=== PATIENT | male | born 1965 | race Caucasian/White ===

== ENCOUNTER 2017-07-07 19:32 | Emergency (ER) | payer SELFPAY ==
[~2017-07-07] VITALS: Ht 175.3 cm; Wt 77.3 kg
[2017-07-07] MEDS ORDERED: METO50 PO (19:40)
[2017-07-07] MEDS ORDERED: INSREG SQ (19:40)
[2017-07-07] MEDS ORDERED: ATOR40TA28 PO (19:40)
[2017-07-07] MEDS ORDERED: TICA90TA PO (19:40)
[2017-07-07] MEDS ORDERED: INSLAN SQ (19:40)
[2017-07-07 19:42] LABS: GLUCOSE,POINT OF CARE 428 MG/DL (70-110)
[2017-07-07 23:08] LABS: BASOPHILS % (AUTO) 1.1 % (0.0-2.0); EOSINOPHILS % (AUTO) 1.9 % (1.0-6.0); HEMATOCRIT 38.1 % (41-53); HEMOGLOBIN 13.2 g/dL (13.5-17.5); LYMPHOCYTES # (AUTO) 1.5 K/uL (1.0-4.8); LYMPHOCYTES % (AUTO) 16.2 % (22.0-44.0); MEAN CORPUSCULAR HEMOGLOBIN 30.5 pg (26.0-34.0); MEAN CORPUSCULAR HGB CONC 34.7 G/dL (31.0-37.0); MEAN CORPUSCULAR VOLUME 88 fL (80-100); MONOCYTES # (AUTO) 0.8 K/uL (0.1-1.0); MONOCYTES % (AUTO) 8.8 % (2.0-9.0); NEUTROPHILS # (AUTO) 6.6 K/uL (1.8-7.7); PLATELET COUNT (AUTO) 216 K/uL (150-450); RED BLOOD CELL COUNT(AUTO) 4.33 MIL/uL (4.50-5.90); RED CELL DISTRIBUTION WIDTH 13.3 % (11.5-14.5)
[2017-07-07 23:24] LABS: ALANINE AMINOTRANSFERASE 17 U/L (12-78); ALBUMIN 3.2 g/dL (3.4-5.0); ALKALINE PHOSPHATASE 127 U/L (46-116); ANION GAP 9 mmol/L (8-16); ASPARTATE AMINOTRANSFERASE 11 U/L (15-37); BILIRUBIN,TOTAL 0.2 mg/dL (0.1-1.0); CALCIUM, TOTAL 9.1 mg/dL (8.8-10.5); CARBON DIOXIDE 29 mmol/L (22-29); CHLORIDE 99 mmol/L (98-107); CREATININE 0.75 mg/dL (0.60-1.30); GLOMERULAR FILTR. RATE CALC > 60 mL/min (>60); POTASSIUM 4.3 mmol/L (3.5-5.1); SODIUM SERUM 137 mmol/L (136-145); TOTAL PROTEIN, SERUM 7.2 g/dL (6.4-8.2); UREA NITROGEN, BLOOD 14 mg/dL (7-18)
[2017-07-07 23:27] LABS: GLUCOSE,RANDOM 420 mg/dL (70-110)
[2017-07-07] MEDS ORDERED: SODIUM CHLORIDE 0.9% 1,000 ML IV ONE (23:45)
[2017-07-07] MEDS ORDERED: INSULIN REGULAR, HUMAN 100 UNITS/ML IVP ONE (23:45)
[2017-07-08 02:52] LABS: GLUCOSE,POINT OF CARE 263 MG/DL (70-110)
[2017-07-08 03:41] VITALS: BP 134/83
== END 2017-07-08 03:42 | disposition home or self-care (01) ==
LOC: EMS 19:33
DX: R07.89 Other chest pain (principal); E11.65 Type 2 diabetes mellitus with hyperglycemia; I25.2 Old myocardial infarction; E11.9 Type 2 diabetes mellitus without complications; I25.10 Atherosclerotic heart disease of native coronary artery without angina pectoris; F17.210 Nicotine dependence, cigarettes, uncomplicated; Z79.4 Long term (current) use of insulin; Z88.8 Allergy status to other drugs, medicaments and biological substances
CPT/HCPCS: 36415; 71045; 80053; 82962; 84484; 85025; 93005; 96361; 96374; 99285; G0480; J1815; J7030

== ENCOUNTER 2018-03-25 23:55 | Inpatient (IN) | payer MEDICAID ==
[~2018-03-25] VITALS: Ht 175.3 cm; Wt 65.4 kg
[~2018-03-25 23:55] MED LIST: APIX2.5T PO; ATOR40TA28 PO; INSLAN SQ; INSREG SQ
[2018-03-26] MEDS ORDERED: CLOP75 PO (00:11)
[2018-03-26 00:18] LABS: GLUCOSE,POINT OF CARE 412 MG/DL (70-110)
[2018-03-26] MEDS ORDERED: SODIUM CHLORIDE 0.9% 1,000 ML IV ONE (01:00)
[2018-03-26] MEDS ORDERED: ASPIRIN 325 MG TABLET PO ONE (01:00)
[2018-03-26] MEDS ORDERED: NITROGLYCERIN 2% (1 GM=INCH) PACKET TP ONE (01:00)
[2018-03-26] MEDS ORDERED: KETOROLAC TROMETHAMINE 30 MG/ML VIAL IVP ONE (01:15)
[2018-03-26] MEDS ORDERED: PROMETHAZINE HCL 6.25 MG/5 ML SYRUP ORAL.SYG PO ONE (01:15)
[2018-03-26 01:18] LABS: BASOPHILS % (AUTO) 0.3 % (0.0-2.0); EOSINOPHILS % (AUTO) 2.4 % (1.0-6.0); HEMATOCRIT 33.9 % (41-53); HEMOGLOBIN 11.8 g/dL (13.5-17.5); LYMPHOCYTES # (AUTO) 1.2 K/uL (1.0-4.8); MEAN CORPUSCULAR HEMOGLOBIN 28.5 pg (26.0-34.0); MEAN CORPUSCULAR HGB CONC 34.8 G/dL (31.0-37.0); MEAN CORPUSCULAR VOLUME 82 fL (80-100); MONOCYTES # (AUTO) 0.6 K/uL (0.1-1.0); MONOCYTES % (AUTO) 7.3 % (2.0-9.0); NEUTROPHILS # (AUTO) 6.6 K/uL (1.8-7.7); PLATELET COUNT (AUTO) 201 K/uL (150-450); RED BLOOD CELL COUNT(AUTO) 4.14 MIL/uL (4.50-5.90); RED CELL DISTRIBUTION WIDTH 16.7 % (11.5-14.5)
[2018-03-26 01:26] LABS: INR 1.1 (0.9-1.1); PROTHROMBIN TIME 11.8 SEC (9.4-11.6)
[2018-03-26 01:31] LABS: ANION GAP 6 mmol/L (8-16); CALCIUM, TOTAL 9.1 mg/dL (8.8-10.5); CARBON DIOXIDE 30 mmol/L (22-29); CHLORIDE 98 mmol/L (98-107); CREATININE 0.72 mg/dL (0.60-1.30); GLOMERULAR FILTR. RATE CALC > 60 mL/min (>60); GLUCOSE,RANDOM 352 mg/dL (70-110); POTASSIUM 3.4 mmol/L (3.5-5.1); SODIUM SERUM 134 mmol/L (136-145); UREA NITROGEN, BLOOD 14 mg/dL (7-18)
[2018-03-26 01:38] LABS: ALANINE AMINOTRANSFERASE 16 U/L (12-78); ALBUMIN 3.2 g/dL (3.4-5.0); ALKALINE PHOSPHATASE 113 U/L (46-116); ASPARTATE AMINOTRANSFERASE 13 U/L (15-37); BILIRUBIN,TOTAL 0.5 mg/dL (0.1-1.0); CREATINE KINASE, TOTAL ONLY 57 U/L (39-308); TOTAL PROTEIN, SERUM 7.1 g/dL (6.4-8.2)
[2018-03-26 01:39] LABS: B-TYPE NATRIURETIC PEPTIDE 21 pg/mL (0-100)
[2018-03-26] MEDS ORDERED: IOVERSOL 350 MG/ML 100 ML VIAL ONE (02:21)
[2018-03-26] MEDS ORDERED: SODIUM CHLORIDE 0.9% 100 ML ONE (02:21)
[2018-03-26 04:29] LABS: GLUCOSE,POINT OF CARE 348 MG/DL (70-110)
[2018-03-26] MEDS ORDERED: 0.9% SODIUM CHLORIDE 10 ML SYRINGE IVP PRN (05:45)
[2018-03-26] MEDS ORDERED: ACETAMINOPHEN 325 MG TABLET PO PRN ×2 (05:45→06:00)
[2018-03-26 05:54] VITALS: BP 97/70
[2018-03-26] MEDS ORDERED: DEXTROSE 50%-WATER 25 GM/50 ML SYRINGE IVP PRN (06:00)
[2018-03-26] MEDS ORDERED: IBUPROFEN 800 MG TABLET PO PRN (06:00)
[2018-03-26] MEDS: INSULIN LISPRO 100 UNITS/ML SQ PRN ×2 (06:16→12:06)
[2018-03-26 07:29] LABS: GLUCOMETER DEV NAME(LOC) 5N.2; GLUCOSE,POINT OF CARE 358 MG/DL (70-110)
[2018-03-26 07:57] VITALS: BP 109/69
[2018-03-26 11:50] VITALS: BP 133/85
[2018-03-26 15:41] VITALS: BP 133/59
[2018-03-26 18:24] LABS: GLUCOMETER DEV NAME(LOC) 5N.2; GLUCOSE,POINT OF CARE 311 MG/DL (70-110)
== END 2018-03-26 16:45 | disposition home or self-care (01) | DRG 198 ==
LOC: EMS 23:55 → 5N 03-26 03:54
PROVIDERS: ADMIT Hospitalist; ATTEND Hospitalist
DX: R07.89 Other chest pain (principal); I25.10 Atherosclerotic heart disease of native coronary artery without angina pectoris; E11.9 Type 2 diabetes mellitus without complications; I10 Essential (primary) hypertension; Z83.3 Family history of diabetes mellitus; Z95.5 Presence of coronary angioplasty implant and graft; Z88.8 Allergy status to other drugs, medicaments and biological substances; Z79.899 Other long term (current) drug therapy; I25.2 Old myocardial infarction
CPT/HCPCS: 71275; 87081; 93005; 96360; G0378; J1885; J7030; J7050

== ENCOUNTER 2018-05-20 16:56 | Inpatient (IN) | payer MEDICAID ==
[~2018-05-20] VITALS: Ht 172.7 cm; Wt 68.5 kg
[~2018-05-20 16:56] MED LIST changes: -APIX2.5T PO; +CLOP75TA17 PO
[2018-05-20 17:09] LABS: GLUCOSE,POINT OF CARE 236 MG/DL (70-110)
[2018-05-20 17:40] LABS: BASOPHILS % (AUTO) 0.6 % (0.0-2.0); EOSINOPHILS % (AUTO) 2.6 % (1.0-6.0); HEMATOCRIT 39.1 % (41-53); HEMOGLOBIN 13.1 g/dL (13.5-17.5); LYMPHOCYTES # (AUTO) 1.3 K/uL (1.0-4.8); LYMPHOCYTES % (AUTO) 14.7 % (22.0-44.0); MEAN CORPUSCULAR HEMOGLOBIN 27.9 pg (26.0-34.0); MEAN CORPUSCULAR HGB CONC 33.6 G/dL (31.0-37.0); MEAN CORPUSCULAR VOLUME 83 fL (80-100); MONOCYTES # (AUTO) 0.7 K/uL (0.1-1.0); MONOCYTES % (AUTO) 7.7 % (2.0-9.0); NEUTROPHILS # (AUTO) 6.3 K/uL (1.8-7.7); NEUTROPHILS % (AUTO) 74.4 % (40.0-70.0); PLATELET COUNT (AUTO) 236 K/uL (150-450); RED BLOOD CELL COUNT(AUTO) 4.71 MIL/uL (4.50-5.90); RED CELL DISTRIBUTION WIDTH 16.5 % (11.5-14.5)
[2018-05-20 18:06] LABS: ANION GAP 9 mmol/L (8-16); CALCIUM, TOTAL 9.1 mg/dL (8.8-10.5); CARBON DIOXIDE 25 mmol/L (22-29); CHLORIDE 100 mmol/L (98-107); CREATININE 0.57 mg/dL (0.60-1.30); GLOMERULAR FILTR. RATE CALC > 60 mL/min (>60); GLUCOSE,RANDOM 277 mg/dL (70-110); POTASSIUM 3.8 mmol/L (3.5-5.1); SODIUM SERUM 134 mmol/L (136-145); UREA NITROGEN, BLOOD 8 mg/dL (7-18)
[2018-05-20 18:12] LABS: ALANINE AMINOTRANSFERASE 15 U/L (12-78); ALBUMIN 3.1 g/dL (3.4-5.0); ALKALINE PHOSPHATASE 121 U/L (46-116); ASPARTATE AMINOTRANSFERASE 15 U/L (15-37); BILIRUBIN,TOTAL 0.4 mg/dL (0.1-1.0); TOTAL PROTEIN, SERUM 6.9 g/dL (6.4-8.2)
[2018-05-20] MEDS ORDERED: ASPIRIN 81 MG CHEWABLE TABLET PO ONE (19:45)
[2018-05-20] MEDS: NITROGLYCERIN 2% (1 GM=INCH) PACKET TP ONE ×2 (19:48→19:53)
[2018-05-20] MEDS: NITROGLYCERIN 0.4 MG SUBLINGUAL TABLET #25 SL ONE ×2 (19:48→19:52)
[2018-05-20] MEDS ORDERED: KETOROLAC TROMETHAMINE 30 MG/ML VIAL IVP ONE (20:00)
[2018-05-20] MEDS ORDERED: ACETAMINOPHEN 325 MG TABLET PO PRN (22:00)
[2018-05-20] MEDS ORDERED: MAGNESIUM HYDROXIDE SUSPENSION 30 ML UDCUP PO PRN (22:00)
[2018-05-20] MEDS ORDERED: BISACODYL 10 MG RECTAL RECTAL SUPPOSITORY PR PRN (22:00)
[2018-05-20] MEDS ORDERED: HYDROCODONE/ACETAMINOPHEN 5-325 MG TABLET PO PRN (22:00)
[2018-05-20] MEDS ORDERED: MORPHINE SULFATE 2 MG/ML SYRINGE IVP PRN (22:00)
[2018-05-20] MEDS ORDERED: DEXTROSE 50%-WATER 25 GM/50 ML SYRINGE IVP PRN (22:00)
[2018-05-20] MEDS ORDERED: ZOLPIDEM TARTRATE 5 MG TABLET PO PRN (22:00)
[2018-05-21 04:17] VITALS: BP 107/60
[2018-05-21 07:34] LABS: BASOPHILS % (AUTO) 0.5 % (0.0-2.0); EOSINOPHILS % (AUTO) 2.6 % (1.0-6.0); HEMOGLOBIN 13.9 g/dL (13.5-17.5); LYMPHOCYTES # (AUTO) 0.9 K/uL (1.0-4.8); LYMPHOCYTES % (AUTO) 16.2 % (22.0-44.0); MEAN CORPUSCULAR HEMOGLOBIN 28.3 pg (26.0-34.0); MEAN CORPUSCULAR HGB CONC 34.7 G/dL (31.0-37.0); MEAN CORPUSCULAR VOLUME 82 fL (80-100); MONOCYTES # (AUTO) 0.5 K/uL (0.1-1.0); MONOCYTES % (AUTO) 8.8 % (2.0-9.0); NEUTROPHILS # (AUTO) 4.1 K/uL (1.8-7.7); NEUTROPHILS % (AUTO) 71.9 % (40.0-70.0); PLATELET COUNT (AUTO) 227 K/uL (150-450); RED CELL DISTRIBUTION WIDTH 16.5 % (11.5-14.5)
[2018-05-21 07:36] LABS: ANION GAP 4 mmol/L (8-16); CALCIUM, TOTAL 9.3 mg/dL (8.8-10.5); CARBON DIOXIDE 31 mmol/L (22-29); CHLORIDE 99 mmol/L (98-107); CHOL/HDL RATIO 2.4 (4.2-7.3); CHOLESTEROL 118 mg/dL (131-200); CREATININE 0.79 mg/dL (0.60-1.30); GLOMERULAR FILTR. RATE CALC > 60 mL/min (>60); GLUCOSE,RANDOM 330 mg/dL (70-110); HDL CHOLESTEROL 50 mg/dL (40-60); LDL CHOL (CALC.) 32 mg/dL (0-130); POTASSIUM 4.3 mmol/L (3.5-5.1); SODIUM SERUM 134 mmol/L (136-145); TRIGLYCERIDES 179 mg/dL (15-150); UREA NITROGEN, BLOOD 9 mg/dL (7-18)
[2018-05-21 08:21] VITALS: BP 121/80
[2018-05-21 08:39] LABS: GLUCOMETER DEV NAME(LOC) 5S.1; GLUCOSE,POINT OF CARE 313 MG/DL (70-110)
[2018-05-21] MEDS: ATORVASTATIN CALCIUM 40 MG TABLET PO SCH (08:58)
[2018-05-21] MEDS: DOCUSATE SODIUM 100 MG CAPSULE PO SCH ×2 (08:58→21:00)
[2018-05-21] MEDS: CLOPIDOGREL BISULFATE 75 MG TABLET PO SCH (08:58)
[2018-05-21] MEDS: PANTOPRAZOLE SODIUM 40 MG DR TABLET PO SCH (08:58)
[2018-05-21] MEDS: INSULIN LISPRO 100 UNITS/ML SQ PRN (11:28)
[2018-05-21] MEDS: METOPROLOL SUCCINATE 25 MG ER TABLET PO SCH (14:11)
[2018-05-21 14:44] LABS: GLUCOMETER DEV NAME(LOC) 5S.1; GLUCOSE,POINT OF CARE 293 MG/DL (70-110)
[2018-05-21 16:14] LABS: AMPHET/METH SCREEN,URINE NEGATIVE (NEGATIVE); BARBITURATE SCREEN, URINE NEGATIVE (NEGATIVE); BENZODIAZEPINES SCREEN,URINE NEGATIVE (NEGATIVE); CANNABINOID SCREEN,URINE NEGATIVE (NEGATIVE); COCAINE SCREEN,URINE NEGATIVE (NEGATIVE); METHADONE SCREEN, URINE NEGATIVE (NEGATIVE); OPIATE SCREEN,URINE NEGATIVE (NEGATIVE); PHENCYCLIDINE SCREEN,URINE NEGATIVE (NEGATIVE)
[2018-05-21] MEDS ORDERED: INSULIN GLARGINE,HUM.REC.ANLOG 100 UNITS/ML SQ SCH (21:00)
[2018-05-21 21:37] VITALS: BP 118/54
[2018-05-21 23:06] VITALS: BP 111/67
[2018-05-22 04:45] VITALS: BP 124/84
[2018-05-22] MEDS: INSULIN LISPRO 100 UNITS/ML SQ PRN ×2 (06:07→11:38)
[2018-05-22 07:24] LABS: GLUCOMETER DEV NAME(LOC) 5N.1; GLUCOSE,POINT OF CARE 376 MG/DL (70-110)
[2018-05-22 07:50] VITALS: BP 98/70
[2018-05-22] MEDS: PANTOPRAZOLE SODIUM 40 MG DR TABLET PO SCH (08:32)
[2018-05-22] MEDS: METOPROLOL SUCCINATE 25 MG ER TABLET PO SCH (08:32)
[2018-05-22] MEDS: DOCUSATE SODIUM 100 MG CAPSULE PO SCH (08:32)
[2018-05-22] MEDS: ATORVASTATIN CALCIUM 40 MG TABLET PO SCH (08:32)
[2018-05-22] MEDS: CLOPIDOGREL BISULFATE 75 MG TABLET PO SCH (08:32)
[2018-05-22 11:38] VITALS: BP 96/56
[2018-05-22 12:11] LABS: BASOPHILS % (AUTO) 0.7 % (0.0-2.0); EOSINOPHILS % (AUTO) 2.1 % (1.0-6.0); HEMATOCRIT 41.2 % (41-53); LYMPHOCYTES # (AUTO) 1.3 K/uL (1.0-4.8); LYMPHOCYTES % (AUTO) 18.9 % (22.0-44.0); MEAN CORPUSCULAR VOLUME 83 fL (80-100); MONOCYTES # (AUTO) 0.5 K/uL (0.1-1.0); MONOCYTES % (AUTO) 7.5 % (2.0-9.0); NEUTROPHILS # (AUTO) 4.7 K/uL (1.8-7.7); NEUTROPHILS % (AUTO) 70.8 % (40.0-70.0); PLATELET COUNT (AUTO) 232 K/uL (150-450); RED BLOOD CELL COUNT(AUTO) 4.99 MIL/uL (4.50-5.90); RED CELL DISTRIBUTION WIDTH 16.3 % (11.5-14.5)
[2018-05-22 12:42] LABS: ANION GAP 7 mmol/L (8-16); CARBON DIOXIDE 30 mmol/L (22-29); CHLORIDE 96 mmol/L (98-107); CREATININE 0.66 mg/dL (0.60-1.30); GLOMERULAR FILTR. RATE CALC > 60 mL/min (>60); GLUCOSE,RANDOM 307 mg/dL (70-110); POTASSIUM 4.3 mmol/L (3.5-5.1); SODIUM SERUM 133 mmol/L (136-145); UREA NITROGEN, BLOOD 16 mg/dL (7-18)
[2018-05-22] MEDS ORDERED: METO-408 PO (13:01)
[2018-05-23 00:13] LABS: GLUCOMETER DEV NAME(LOC) 5S.1; GLUCOSE,POINT OF CARE 345 MG/DL (70-110)
== END 2018-05-22 13:40 | disposition home or self-care (01) | DRG 198 ==
LOC: EMS 16:57 → 5S 20:27
PROVIDERS: ADMIT Internal Medicine; ATTEND Internal Medicine
DX: I25.110 Atherosclerotic heart disease of native coronary artery with unstable angina pectoris (principal); F11.20 Opioid dependence, uncomplicated; E78.5 Hyperlipidemia, unspecified; I10 Essential (primary) hypertension; G89.4 Chronic pain syndrome; I25.2 Old myocardial infarction; R55 Syncope and collapse; E11.9 Type 2 diabetes mellitus without complications; Z88.8 Allergy status to other drugs, medicaments and biological substances; Z95.5 Presence of coronary angioplasty implant and graft; Z79.899 Other long term (current) drug therapy
CPT/HCPCS: 36556; 70450; 80307; 87081; 93005; 93306; G0378; J1815

== ENCOUNTER 2018-06-14 13:26 | Emergency (ER) | payer MEDICAID ==
[~2018-06-14] VITALS: Ht 175.3 cm; Wt 68.7 kg
[~2018-06-14 13:26] MED LIST changes: -CLOP75TA17 PO; +CLOP75TA3 PO; +METO-408 PO
[2018-06-14 13:53] LABS: GLUCOSE,POINT OF CARE 550 MG/DL (70-110)
[2018-06-14 15:37] LABS: BASOPHILS % (AUTO) 0.9 % (0.0-2.0); EOSINOPHILS % (AUTO) 3.2 % (1.0-6.0); HEMATOCRIT 37.3 % (41-53); HEMOGLOBIN 12.5 g/dL (13.5-17.5); LYMPHOCYTES # (AUTO) 0.9 K/uL (1.0-4.8); LYMPHOCYTES % (AUTO) 15.7 % (22.0-44.0); MEAN CORPUSCULAR HGB CONC 33.5 G/dL (31.0-37.0); MEAN CORPUSCULAR VOLUME 84 fL (80-100); MONOCYTES # (AUTO) 0.5 K/uL (0.1-1.0); MONOCYTES % (AUTO) 8.2 % (2.0-9.0); NEUTROPHILS # (AUTO) 4.3 K/uL (1.8-7.7); PLATELET COUNT (AUTO) 196 K/uL (150-450); RED BLOOD CELL COUNT(AUTO) 4.45 MIL/uL (4.50-5.90); RED CELL DISTRIBUTION WIDTH 15.4 % (11.5-14.5)
[2018-06-14 15:55] LABS: INR 1.1 (0.9-1.1); PROTHROMBIN TIME 11.2 SEC (9.4-11.6)
[2018-06-14 15:57] LABS: ALANINE AMINOTRANSFERASE 14 U/L (12-78); ALBUMIN 3.3 g/dL (3.4-5.0); ALKALINE PHOSPHATASE 125 U/L (46-116); ANION GAP 10 mmol/L (8-16); ASPARTATE AMINOTRANSFERASE 8 U/L (15-37); BILIRUBIN,TOTAL 0.3 mg/dL (0.1-1.0); CALCIUM, TOTAL 9.2 mg/dL (8.8-10.5); CARBON DIOXIDE 27 mmol/L (22-29); CHLORIDE 95 mmol/L (98-107); CREATININE 0.92 mg/dL (0.60-1.30); GLOMERULAR FILTR. RATE CALC > 60 mL/min (>60); LIPASE 155 U/L (73-393); POTASSIUM 4.2 mmol/L (3.5-5.1); SODIUM SERUM 132 mmol/L (136-145); TOTAL PROTEIN, SERUM 7.3 g/dL (6.4-8.2); UREA NITROGEN, BLOOD 13 mg/dL (7-18)
[2018-06-14 16:00] LABS: GLUCOSE,RANDOM 577 mg/dL (70-110)
[2018-06-14] MEDS ORDERED: SODIUM CHLORIDE 0.9% 1,000 ML IV ONE ×2 (16:15→21:15)
[2018-06-14] MEDS ORDERED: INSULIN REGULAR, HUMAN 100 UNITS/ML IVP ONE ×2 (16:15→19:45)
[2018-06-14] MEDS ORDERED: DiphenhydrAMINE HCL 50 MG/ML VIAL IVP ONE (17:00)
[2018-06-14] MEDS ORDERED: MORPHINE SULFATE 4 MG/ML SYRINGE IVP ONE (17:00)
[2018-06-14 17:29] LABS: GLUCOSE,POINT OF CARE 307 MG/DL (70-110)
[2018-06-14 17:36] LABS: APPEARANCE,URINE CLEAR (CLEAR); BILIRUBIN,URINE NEGATIVE (NEGATIVE); GLUCOSE, URINE (UA) >=1000 mg/dL (NEGATIVE); KETONES,URINE NEGATIVE (NEGATIVE); LEUKOCYTE ESTERASE ,URINE NEGATIVE (NEGATIVE); NITRATE,URINE NEGATIVE (NEGATIVE); OCCULT BLOOD,URINE NEGATIVE (NEGATIVE); PH,URINE 5.5 (5.0-8.0); PROTEIN,URINE NEGATIVE (NEGATIVE); UROBILINOGEN,URINE 0.2 mg/dL (<=1.0)
[2018-06-14 17:41] LABS: AMPHET/METH SCREEN,URINE NEGATIVE (NEGATIVE); BARBITURATE SCREEN, URINE NEGATIVE (NEGATIVE); BENZODIAZEPINES SCREEN,URINE NEGATIVE (NEGATIVE); CANNABINOID SCREEN,URINE NEGATIVE (NEGATIVE); COCAINE SCREEN,URINE NEGATIVE (NEGATIVE); METHADONE SCREEN, URINE NEGATIVE (NEGATIVE); OPIATE SCREEN,URINE NEGATIVE (NEGATIVE); PHENCYCLIDINE SCREEN,URINE NEGATIVE (NEGATIVE)
[2018-06-14 17:51] LABS: BACTERIA,URINE None Seen /HPF (None Seen); RBC,URINE 0-2 /HPF (0-2); SQUAMOUS EPITHELIAL CELL,UR Rare /LPF (None Seen); WBC,URINE 0-2 /HPF (0-5)
[2018-06-14 19:39] LABS: GLUCOSE,POINT OF CARE 381 MG/DL (70-110)
[2018-06-14] MEDS ORDERED: KETOROLAC TROMETHAMINE 30 MG/ML VIAL IVP ONE (19:45)
[2018-06-14] MEDS ORDERED: SODIUM CHLORIDE 0.9% 500 ML IV ONE (19:45)
[2018-06-14 21:08] LABS: GLUCOSE,POINT OF CARE 245 MG/DL (70-110)
[2018-06-14 22:04] VITALS: BP 111/67
== END 2018-06-14 22:19 | disposition home or self-care (01) ==
LOC: EMS 13:28
DX: R10.30 Lower abdominal pain, unspecified (principal); R11.2 Nausea with vomiting, unspecified; E11.65 Type 2 diabetes mellitus with hyperglycemia; G89.29 Other chronic pain; E11.9 Type 2 diabetes mellitus without complications; I11.9 Hypertensive heart disease without heart failure; I25.10 Atherosclerotic heart disease of native coronary artery without angina pectoris; I25.2 Old myocardial infarction; F17.210 Nicotine dependence, cigarettes, uncomplicated; Z79.899 Other long term (current) drug therapy; Z79.4 Long term (current) use of insulin; Z88.5 Allergy status to narcotic agent; Z88.6 Allergy status to analgesic agent; Z88.8 Allergy status to other drugs, medicaments and biological substances; Z95.1 Presence of aortocoronary bypass graft
CPT/HCPCS: 36415; 74176; 80053; 80307; 81001; 82009; 82962; 83690; 83880; 84484; 85025; 85610; 85730; 93005; 96361; 96374; 96375; 96376; 99285; J1200; J1815; J1885; J2270; J7030; J7040

== ENCOUNTER 2018-06-30 21:55 | Inpatient (IN) | payer MEDICAID ==
[~2018-06-30] VITALS: Ht 175.3 cm; Wt 70.2 kg
[2018-06-30 22:09] LABS: GLUCOSE,POINT OF CARE 562 MG/DL (70-110)
[2018-06-30 23:06] LABS: BASOPHILS % (AUTO) 0.5 % (0.0-2.0); EOSINOPHILS % (AUTO) 1.7 % (1.0-6.0); HEMATOCRIT 43.2 % (41-53); HEMOGLOBIN 14.6 g/dL (13.5-17.5); LYMPHOCYTES # (AUTO) 1.3 K/uL (1.0-4.8); LYMPHOCYTES % (AUTO) 15.6 % (22.0-44.0); MEAN CORPUSCULAR HEMOGLOBIN 28.3 pg (26.0-34.0); MEAN CORPUSCULAR HGB CONC 33.8 G/dL (31.0-37.0); MEAN CORPUSCULAR VOLUME 84 fL (80-100); MONOCYTES # (AUTO) 0.6 K/uL (0.1-1.0); NEUTROPHILS # (AUTO) 6.2 K/uL (1.8-7.7); NEUTROPHILS % (AUTO) 75.2 % (40.0-70.0); PLATELET COUNT (AUTO) 253 K/uL (150-450); RED BLOOD CELL COUNT(AUTO) 5.16 MIL/uL (4.50-5.90); RED CELL DISTRIBUTION WIDTH 15.8 % (11.5-14.5)
[2018-06-30 23:17] LABS: INR 1.1 (0.9-1.1); PROTHROMBIN TIME 11.3 SEC (9.4-11.6)
[2018-06-30 23:20] LABS: ALANINE AMINOTRANSFERASE 19 U/L (12-78); ALKALINE PHOSPHATASE 142 U/L (46-116); ANION GAP 12 mmol/L (8-16); ASPARTATE AMINOTRANSFERASE 19 U/L (15-37); BILIRUBIN,TOTAL 0.4 mg/dL (0.1-1.0); CALCIUM, TOTAL 9.3 mg/dL (8.8-10.5); CARBON DIOXIDE 26 mmol/L (22-29); CHLORIDE 97 mmol/L (98-107); CREATINE KINASE, TOTAL ONLY 69 U/L (39-308); CREATININE 0.91 mg/dL (0.60-1.30); GLOMERULAR FILTR. RATE CALC > 60 mL/min (>60); POTASSIUM 4.6 mmol/L (3.5-5.1); SODIUM SERUM 135 mmol/L (136-145); TOTAL PROTEIN, SERUM 8.4 g/dL (6.4-8.2); UREA NITROGEN, BLOOD 18 mg/dL (7-18)
[2018-06-30 23:25] LABS: GLUCOSE,RANDOM 464 mg/dL (70-110)
[2018-06-30 23:31] LABS: B-TYPE NATRIURETIC PEPTIDE 74 pg/mL (0-100)
[2018-07-01] MEDS ORDERED: ALBUTEROL SULFATE 5 MG/ML 20 ML NEB SOLN [BULK] NEB ONE (00:30)
[2018-07-01] MEDS ORDERED: INSULIN REGULAR, HUMAN 100 UNITS/ML IVP ONE (00:30)
[2018-07-01] MEDS ORDERED: IPRATROPIUM BROMIDE 0.5 MG/2.5 ML NEB SOLUTION NEB ONE (00:30)
[2018-07-01] MEDS ORDERED: ASPIRIN 325 MG TABLET PO ONE (00:30)
[2018-07-01] MEDS ORDERED: 0.9% SODIUM CHLORIDE 10 ML SYRINGE IVP PRN (01:15)
[2018-07-01] MEDS ORDERED: ACETAMINOPHEN 325 MG TABLET PO PRN ×2 (01:15→20:30)
[2018-07-01] MEDS ORDERED: MORPHINE SULFATE 4 MG/ML SYRINGE IVP ONE (01:15)
[2018-07-01] MEDS: NITROGLYCERIN 2% (1 GM=INCH) PACKET TP ONE ×2 (01:21→01:28)
[2018-07-01] MEDS ORDERED: DiphenhydrAMINE HCL 50 MG/ML VIAL IVP ONE (01:45)
[2018-07-01 02:08] LABS: GLUCOSE,POINT OF CARE 426 MG/DL (70-110)
[2018-07-01 04:17] VITALS: BP 112/56
[2018-07-01] MEDS: MORPHINE SULFATE 2 MG/ML SYRINGE IVP PRN ×4 (05:22→22:08)
[2018-07-01 06:59] LABS: GLUCOMETER DEV NAME(LOC) 5S.1; GLUCOSE,POINT OF CARE 463 MG/DL (70-110)
[2018-07-01] MEDS ORDERED: DEXTROSE 50%-WATER 25 GM/50 ML SYRINGE IVP PRN (07:00)
[2018-07-01] MEDS ORDERED: INSULIN LISPRO 100 UNITS/ML SQ ONE (07:45)
[2018-07-01 08:08] VITALS: BP 113/65
[2018-07-01 11:47] VITALS: BP 112/62
[2018-07-01] MEDS: INSULIN LISPRO 100 UNITS/ML SQ PRN ×3 (11:47→21:55)
[2018-07-01] MEDS: ATORVASTATIN CALCIUM 40 MG TABLET PO SCH (12:18)
[2018-07-01 13:45] LABS: GLUCOMETER DEV NAME(LOC) 5S.1; GLUCOSE,POINT OF CARE 262 MG/DL (70-110)
[2018-07-01 14:39] LABS: APPEARANCE,URINE CLEAR (CLEAR); BILIRUBIN,URINE NEGATIVE (NEGATIVE); GLUCOSE, URINE (UA) >=1000 mg/dL (NEGATIVE); KETONES,URINE NEGATIVE (NEGATIVE); LEUKOCYTE ESTERASE ,URINE NEGATIVE (NEGATIVE); NITRATE,URINE NEGATIVE (NEGATIVE); OCCULT BLOOD,URINE NEGATIVE (NEGATIVE); PROTEIN,URINE NEGATIVE (NEGATIVE); UROBILINOGEN,URINE 0.2 mg/dL (<=1.0)
[2018-07-01 14:49] LABS: BACTERIA,URINE Rare /HPF (None Seen); RBC,URINE None Seen /HPF (0-2); SQUAMOUS EPITHELIAL CELL,UR Rare /LPF (None Seen); WBC,URINE 0-2 /HPF (0-5)
[2018-07-01 15:53] VITALS: BP 110/72
[2018-07-01 19:52] VITALS: BP 99/55
[2018-07-01] MEDS ORDERED: ZOLPIDEM TARTRATE 10 MG TABLET PO PRN (20:30)
[2018-07-01] MEDS ORDERED: MAGNESIUM HYDROXIDE SUSPENSION 30 ML UDCUP PO PRN (20:30)
[2018-07-01] MEDS ORDERED: IPRATROPIUM BROMIDE 0.5 MG/2.5 ML NEB SOLUTION NEB PRN (20:30)
[2018-07-01] MEDS ORDERED: HYDROCODONE/ACETAMINOPHEN 5-325 MG TABLET PO PRN (20:30)
[2018-07-01] MEDS: DOCUSATE SODIUM 100 MG CAPSULE PO SCH (21:00)
[2018-07-01] MEDS: INSULIN GLARGINE,HUM.REC.ANLOG 100 UNITS/ML SQ SCH (21:54)
[2018-07-01 22:05] VITALS: BP 119/70
[2018-07-01] MEDS: NITROGLYCERIN 2% (1 GM=INCH) PACKET TP SCH (23:13)
[2018-07-02 02:14] LABS: GLUCOMETER DEV NAME(LOC) 5S.2; GLUCOSE,POINT OF CARE 332 MG/DL (70-110)
[2018-07-02 04:58] VITALS: BP 109/68
[2018-07-02] MEDS: NITROGLYCERIN 2% (1 GM=INCH) PACKET TP SCH ×4 (05:15→23:05)
[2018-07-02 06:02] LABS: BASOPHILS % (AUTO) 0.3 % (0.0-2.0); EOSINOPHILS % (AUTO) 2.5 % (1.0-6.0); HEMATOCRIT 37.6 % (41-53); HEMOGLOBIN 12.7 g/dL (13.5-17.5); LYMPHOCYTES # (AUTO) 1.4 K/uL (1.0-4.8); LYMPHOCYTES % (AUTO) 20.8 % (22.0-44.0); MEAN CORPUSCULAR HGB CONC 33.7 G/dL (31.0-37.0); MEAN CORPUSCULAR VOLUME 83 fL (80-100); MONOCYTES # (AUTO) 0.7 K/uL (0.1-1.0); NEUTROPHILS # (AUTO) 4.6 K/uL (1.8-7.7); NEUTROPHILS % (AUTO) 66.4 % (40.0-70.0); PLATELET COUNT (AUTO) 208 K/uL (150-450); RED BLOOD CELL COUNT(AUTO) 4.54 MIL/uL (4.50-5.90); RED CELL DISTRIBUTION WIDTH 15.5 % (11.5-14.5)
[2018-07-02 06:17] LABS: ALANINE AMINOTRANSFERASE 13 U/L (12-78); ALKALINE PHOSPHATASE 104 U/L (46-116); ANION GAP 9 mmol/L (8-16); ASPARTATE AMINOTRANSFERASE 9 U/L (15-37); BILIRUBIN,TOTAL 0.4 mg/dL (0.1-1.0); CARBON DIOXIDE 27 mmol/L (22-29); CHLORIDE 100 mmol/L (98-107); CHOL/HDL RATIO 2.1 (4.2-7.3); CHOLESTEROL 89 mg/dL (131-200); CREATININE 0.69 mg/dL (0.60-1.30); GLOMERULAR FILTR. RATE CALC > 60 mL/min (>60); GLUCOSE,RANDOM 197 mg/dL (70-110); HDL CHOLESTEROL 43 mg/dL (40-60); LDL CHOL (CALC.) 37 mg/dL (0-130); POTASSIUM 4.2 mmol/L (3.5-5.1); SODIUM SERUM 136 mmol/L (136-145); TOTAL PROTEIN, SERUM 6.6 g/dL (6.4-8.2); TRIGLYCERIDES 44 mg/dL (15-150); UREA NITROGEN, BLOOD 15 mg/dL (7-18)
[2018-07-02] MEDS: INSULIN LISPRO 100 UNITS/ML SQ PRN ×5 (06:26→21:28)
[2018-07-02] MEDS: MORPHINE SULFATE 2 MG/ML SYRINGE IVP PRN ×4 (06:27→22:59)
[2018-07-02 08:32] VITALS: BP 92/52
[2018-07-02] MEDS: METOPROLOL SUCCINATE 25 MG ER TABLET PO SCH (09:00)
[2018-07-02] MEDS: DOCUSATE SODIUM 100 MG CAPSULE PO SCH ×2 (09:00→20:54)
[2018-07-02] MEDS: ATORVASTATIN CALCIUM 40 MG TABLET PO SCH (09:00)
[2018-07-02] MEDS: ASPIRIN 81 MG CHEWABLE TABLET PO SCH (09:01)
[2018-07-02] MEDS: CLOPIDOGREL BISULFATE 75 MG TABLET PO SCH (09:01)
[2018-07-02] MEDS: PANTOPRAZOLE SODIUM 40 MG/VIAL IVP SCH (09:04)
[2018-07-02 11:19] VITALS: BP 91/58
[2018-07-02 16:55] LABS: GLUCOMETER DEV NAME(LOC) 5N.1; GLUCOSE,POINT OF CARE 265 MG/DL (70-110)
[2018-07-02 16:55] LABS: GLUCOMETER DEV NAME(LOC) 5S.1; GLUCOSE,POINT OF CARE 320 MG/DL (70-110)
[2018-07-02 16:55] LABS: GLUCOMETER DEV NAME(LOC) 5N.1; GLUCOSE,POINT OF CARE 194 MG/DL (70-110)
[2018-07-02 16:55] LABS: GLUCOMETER DEV NAME(LOC) 5S.2; GLUCOSE,POINT OF CARE 240 MG/DL (70-110)
[2018-07-02 20:02] VITALS: BP 94/64
[2018-07-02 20:33] LABS: GLUCOMETER DEV NAME(LOC) 5S.1; GLUCOSE,POINT OF CARE 263 MG/DL (70-110)
[2018-07-02] MEDS: INSULIN GLARGINE,HUM.REC.ANLOG 100 UNITS/ML SQ SCH (21:00)
[2018-07-02 23:45] LABS: GLUCOMETER DEV NAME(LOC) 5S.2; GLUCOSE,POINT OF CARE 312 MG/DL (70-110)
[2018-07-03 04:09] VITALS: BP 109/72
[2018-07-03] MEDS: NITROGLYCERIN 2% (1 GM=INCH) PACKET TP SCH ×2 (06:00→11:45)
[2018-07-03] MEDS: INSULIN LISPRO 100 UNITS/ML SQ PRN ×2 (06:13→11:30)
[2018-07-03] MEDS: MORPHINE SULFATE 2 MG/ML SYRINGE IVP PRN ×2 (06:15→11:30)
[2018-07-03 06:35] LABS: GLUCOMETER DEV NAME(LOC) 5N.1; GLUCOSE,POINT OF CARE 369 MG/DL (70-110)
[2018-07-03 07:34] VITALS: BP 96/59
[2018-07-03] MEDS: ASPIRIN 81 MG CHEWABLE TABLET PO SCH (08:15)
[2018-07-03] MEDS: PANTOPRAZOLE SODIUM 40 MG/VIAL IVP SCH (08:15)
[2018-07-03] MEDS: DOCUSATE SODIUM 100 MG CAPSULE PO SCH (08:16)
[2018-07-03] MEDS: CLOPIDOGREL BISULFATE 75 MG TABLET PO SCH (08:16)
[2018-07-03] MEDS: ATORVASTATIN CALCIUM 40 MG TABLET PO SCH (08:16)
[2018-07-03] MEDS: METOPROLOL SUCCINATE 25 MG ER TABLET PO SCH (08:25)
[2018-07-03 10:56] VITALS: BP 104/63
[2018-07-04 14:49] LABS: GLUCOMETER DEV NAME(LOC) 5N.1; GLUCOSE,POINT OF CARE 161 MG/DL (70-110)
== END 2018-07-03 15:10 | disposition home or self-care (01) | DRG 198 ==
LOC: EMS 21:56 → 5S 07-01 00:56
PROVIDERS: ADMIT Hospitalist; ATTEND Hospitalist
DX: R07.9 Chest pain, unspecified (principal); I25.10 Atherosclerotic heart disease of native coronary artery without angina pectoris; E11.65 Type 2 diabetes mellitus with hyperglycemia; F17.290 Nicotine dependence, other tobacco product, uncomplicated; I10 Essential (primary) hypertension; Z82.49 Family history of ischemic heart disease and other diseases of the circulatory system; Z83.3 Family history of diabetes mellitus; Z95.1 Presence of aortocoronary bypass graft; Z95.5 Presence of coronary angioplasty implant and graft; Z88.8 Allergy status to other drugs, medicaments and biological substances; Z79.899 Other long term (current) drug therapy; Z79.4 Long term (current) use of insulin; Z79.02 Long term (current) use of antithrombotics/antiplatelets; I25.2 Old myocardial infarction
CPT/HCPCS: 87081; 93005; 96374; 96375; C9113; G0378; J1200; J1815; J2270

== ENCOUNTER 2018-09-27 05:57 | Emergency (ER) | payer MEDICARE ==
[~2018-09-27] VITALS: Ht 175.3 cm; Wt 75.0 kg
[~2018-09-27 05:57] MED LIST changes: -INSLAN SQ; -METO-408 PO
[2018-09-27] MEDS ORDERED: METO50 PO (06:07)
[2018-09-27 06:14] LABS: GLUCOSE,POINT OF CARE 274 MG/DL (70-110)
[2018-09-27] MEDS ORDERED: KETOROLAC TROMETHAMINE 30 MG/ML VIAL IM ONE (07:00)
[2018-09-27] MEDS ORDERED: LIDOCAINE 5% TRANSDERMAL PATCH TD ONE (07:00)
[2018-09-27] MEDS ORDERED: CYCLOBENZAPRINE HCL 10 MG TABLET PO ONE (07:00)
[2018-09-27 07:55] VITALS: BP 153/87
== END 2018-09-27 08:09 | disposition home or self-care (01) ==
LOC: EMS 06:00
DX: M54.9 Dorsalgia, unspecified (principal); G89.29 Other chronic pain; I25.10 Atherosclerotic heart disease of native coronary artery without angina pectoris; I11.9 Hypertensive heart disease without heart failure; E11.9 Type 2 diabetes mellitus without complications; I25.2 Old myocardial infarction; F17.210 Nicotine dependence, cigarettes, uncomplicated; Z90.49 Acquired absence of other specified parts of digestive tract; Z79.4 Long term (current) use of insulin; Z88.8 Allergy status to other drugs, medicaments and biological substances
CPT/HCPCS: 82962; 96372; 99283; J1885

== ENCOUNTER 2018-10-31 22:59 | Emergency (ER) | payer MEDICARE ==
[~2018-10-31] VITALS: Ht 172.7 cm; Wt 75.0 kg
[~2018-10-31 22:59] MED LIST changes: +INSLAN SQ; +METO50 PO
[2018-10-31 23:20] LABS: GLUCOSE,POINT OF CARE 483 MG/DL (70-110)
[2018-11-01] MEDS ORDERED: DEXAMETHASONE SOD PHOS 4 MG/ML 5 ML VIAL IVP ONE (01:30)
[2018-11-01] MEDS ORDERED: LIDOCAINE 5% TRANSDERMAL PATCH TD ONE (01:30)
[2018-11-01] MEDS ORDERED: ACETAMINOPHEN 500 MG TABLET PO ONE (01:30)
[2018-11-01] MEDS ORDERED: DIAZEPAM 5 MG/ML 2 ML SYRINGE IVP ONE (01:30)
[2018-11-01] MEDS ORDERED: KETOROLAC TROMETHAMINE 30 MG/ML VIAL IVP ONE (02:30)
[2018-11-01 02:36] LABS: BASOPHILS % (AUTO) 0.6 % (0.0-2.0); EOSINOPHILS % (AUTO) 2.8 % (1.0-6.0); HEMATOCRIT 36.7 % (41-53); HEMOGLOBIN 12.1 g/dL (13.5-17.5); LYMPHOCYTES # (AUTO) 1.5 K/uL (1.0-4.8); LYMPHOCYTES % (AUTO) 18.6 % (22.0-44.0); MEAN CORPUSCULAR HEMOGLOBIN 28.1 pg (26.0-34.0); MEAN CORPUSCULAR HGB CONC 33.1 G/dL (31.0-37.0); MEAN CORPUSCULAR VOLUME 85 fL (80-100); MONOCYTES # (AUTO) 0.8 K/uL (0.1-1.0); MONOCYTES % (AUTO) 9.4 % (2.0-9.0); NEUTROPHILS # (AUTO) 5.5 K/uL (1.8-7.7); NEUTROPHILS % (AUTO) 68.6 % (40.0-70.0); PLATELET COUNT (AUTO) 222 K/uL (150-450); RED BLOOD CELL COUNT(AUTO) 4.32 MIL/uL (4.50-5.90); RED CELL DISTRIBUTION WIDTH 15.6 % (11.5-14.5)
[2018-11-01 02:41] LABS: APPEARANCE,URINE CLEAR (CLEAR); BILIRUBIN,URINE NEGATIVE (NEGATIVE); GLUCOSE, URINE (UA) >=1000 mg/dL (NEGATIVE); KETONES,URINE NEGATIVE (NEGATIVE); LEUKOCYTE ESTERASE ,URINE NEGATIVE (NEGATIVE); NITRATE,URINE NEGATIVE (NEGATIVE); OCCULT BLOOD,URINE NEGATIVE (NEGATIVE); PH,URINE 5.5 (5.0-8.0); PROTEIN,URINE NEGATIVE (NEGATIVE); UROBILINOGEN,URINE 0.2 mg/dL (<=1.0)
[2018-11-01] MEDS ORDERED: MORPHINE SULFATE 2 MG/ML SYRINGE IVP ONE (02:45)
[2018-11-01 02:46] LABS: ALANINE AMINOTRANSFERASE 12 U/L (12-78); ALBUMIN 3.5 g/dL (3.4-5.0); ALKALINE PHOSPHATASE 119 U/L (46-116); ANION GAP 7 mmol/L (8-16); ASPARTATE AMINOTRANSFERASE 11 U/L (15-37); BILIRUBIN,TOTAL 0.3 mg/dL (0.1-1.0); CALCIUM, TOTAL 9.3 mg/dL (8.8-10.5); CARBON DIOXIDE 28 mmol/L (22-29); CHLORIDE 100 mmol/L (98-107); CREATINE KINASE, TOTAL ONLY 57 U/L (39-308); CREATININE 0.93 mg/dL (0.60-1.30); GLOMERULAR FILTR. RATE CALC > 60 mL/min (>60); POTASSIUM 4.4 mmol/L (3.5-5.1); SODIUM SERUM 135 mmol/L (136-145); TOTAL PROTEIN, SERUM 7.3 g/dL (6.4-8.2); UREA NITROGEN, BLOOD 17 mg/dL (7-18)
[2018-11-01 02:51] LABS: GLUCOSE,RANDOM 438 mg/dL (70-110)
[2018-11-01 02:57] LABS: BACTERIA,URINE Rare /HPF (None Seen); RBC,URINE 0-2 /HPF (0-2); SQUAMOUS EPITHELIAL CELL,UR Rare /LPF (None Seen); WBC,URINE 0-2 /HPF (0-5)
[2018-11-01] MEDS ORDERED: SODIUM CHLORIDE 0.9% 1,000 ML IV ONE (03:45)
[2018-11-01] MEDS ORDERED: INSULIN REGULAR, HUMAN 100 UNITS/ML SQ ONE (05:00)
[2018-11-01 05:31] LABS: GLUCOSE,POINT OF CARE 367 MG/DL (70-110)
[2018-11-03 13:31] VITALS: BP 125/83
== END 2018-11-01 05:35 | disposition home or self-care (01) ==
LOC: EMS 23:03
DX: R32 Unspecified urinary incontinence (principal); M54.5 Low back pain; G89.29 Other chronic pain; I48.91 Unspecified atrial fibrillation; I25.10 Atherosclerotic heart disease of native coronary artery without angina pectoris; I11.9 Hypertensive heart disease without heart failure; I25.2 Old myocardial infarction; E11.9 Type 2 diabetes mellitus without complications; Z90.49 Acquired absence of other specified parts of digestive tract; Z87.891 Personal history of nicotine dependence; Z79.4 Long term (current) use of insulin; Z88.8 Allergy status to other drugs, medicaments and biological substances
CPT/HCPCS: 36415; 72148; 80053; 81001; 82550; 82962; 85025; 96374; 96375; 99284; J1100; J1815; J1885 ×2; J2270; J7030

== ENCOUNTER 2019-05-08 16:07 | Inpatient (IN) | payer MEDICAID, MEDICARE ==
[~2019-05-08] VITALS: Ht 167.6 cm; Wt 76.9 kg
[2019-05-08] MEDS ORDERED: FURO20 PO (16:18)
[2019-05-08 16:24] LABS: GLUCOSE,POINT OF CARE 176 MG/DL (70-110)
[2019-05-08] MEDS ORDERED: DiphenhydrAMINE HCL 50 MG/ML VIAL IVP ONE (17:00)
[2019-05-08] MEDS ORDERED: MORPHINE SULFATE 2 MG/ML SYRINGE IVP ONE ×2 (17:00→20:00)
[2019-05-08 17:49] LABS: ANION GAP 6 mmol/L (8-16); CALCIUM, TOTAL 8.8 mg/dL (8.8-10.5); CARBON DIOXIDE 28 mmol/L (22-29); CHLORIDE 101 mmol/L (98-107); GLOMERULAR FILTR. RATE CALC > 60 mL/min (>60); GLUCOSE,RANDOM 215 mg/dL (70-110); POTASSIUM 3.9 mmol/L (3.5-5.1); SODIUM SERUM 135 mmol/L (136-145); UREA NITROGEN, BLOOD 21 mg/dL (7-18)
[2019-05-08 18:14] LABS: ALANINE AMINOTRANSFERASE 23 U/L (12-78); ALBUMIN 3.7 g/dL (3.4-5.0); ALKALINE PHOSPHATASE 102 U/L (46-116); ASPARTATE AMINOTRANSFERASE 21 U/L (15-37); BILIRUBIN,TOTAL 0.4 mg/dL (0.1-1.0); CREATINE KINASE, TOTAL ONLY 121 U/L (39-308); TOTAL PROTEIN, SERUM 7.9 g/dL (6.4-8.2)
[2019-05-08 18:19] LABS: BASOPHILS % (AUTO) 0.6 % (0.0-2.0); EOSINOPHILS % (AUTO) 1.8 % (1.0-6.0); HEMATOCRIT 34.5 % (41-53); HEMOGLOBIN 11.4 g/dL (13.5-17.5); LYMPHOCYTES % (AUTO) 19.7 % (22.0-44.0); MEAN CORPUSCULAR HEMOGLOBIN 26.9 pg (26.0-34.0); MEAN CORPUSCULAR VOLUME 82 fL (80-100); MONOCYTES # (AUTO) 0.5 K/uL (0.1-1.0); MONOCYTES % (AUTO) 10.3 % (2.0-9.0); NEUTROPHILS # (AUTO) 3.3 K/uL (1.8-7.7); NEUTROPHILS % (AUTO) 67.6 % (40.0-70.0); PLATELET COUNT (AUTO) 171 K/uL (150-450); RED BLOOD CELL COUNT(AUTO) 4.23 MIL/uL (4.50-5.90); RED CELL DISTRIBUTION WIDTH 18.1 % (11.5-14.5)
[2019-05-08 18:41] LABS: B-TYPE NATRIURETIC PEPTIDE 782 pg/mL (0-100)
[2019-05-08 18:50] LABS: INR 1.2 (0.9-1.1); PROTHROMBIN TIME 12.3 SEC (9.4-11.6)
[2019-05-08] MEDS ORDERED: FUROSEMIDE 40 MG/4 ML VIAL IVP ONE (19:00)
[2019-05-08 21:21] LABS: APPEARANCE,URINE CLEAR (CLEAR); BILIRUBIN,URINE NEGATIVE (NEGATIVE); GLUCOSE, URINE (UA) 100 mg/dL (NEGATIVE); KETONES,URINE TRACE mg/dL (NEGATIVE); LEUKOCYTE ESTERASE ,URINE NEGATIVE (NEGATIVE); NITRATE,URINE NEGATIVE (NEGATIVE); OCCULT BLOOD,URINE NEGATIVE (NEGATIVE); PROTEIN,URINE NEGATIVE (NEGATIVE); UROBILINOGEN,URINE 0.2 mg/dL (<=1.0)
[2019-05-08] MEDS ORDERED: ACETAMINOPHEN 325 MG TABLET PO PRN (21:30)
[2019-05-08] MEDS ORDERED: 0.9% SODIUM CHLORIDE 10 ML SYRINGE IVP PRN (21:30)
[2019-05-08 21:44] LABS: BACTERIA,URINE Rare /HPF (None Seen); RBC,URINE 0-2 /HPF (0-2); SQUAMOUS EPITHELIAL CELL,UR Few /LPF (None Seen); WBC,URINE 0-2 /HPF (0-5)
[2019-05-08 22:11] VITALS: BP 93/55
[2019-05-08] MEDS ORDERED: KETOROLAC TROMETHAMINE 15 MG/ML VIAL IVP ONE (22:45)
[2019-05-09] MEDS ORDERED: MORPHINE SULFATE 2 MG/ML SYRINGE IVP PRN (00:15)
[2019-05-09] MEDS ORDERED: MAGNESIUM HYDROXIDE SUSPENSION 30 ML UDCUP PO PRN (02:30)
[2019-05-09] MEDS ORDERED: ACETAMINOPHEN 325 MG TABLET PO PRN (02:30)
[2019-05-09] MEDS ORDERED: MAGNESIUM SULFATE 4 GM/WATER 100 ML IV PRN (02:30)
[2019-05-09] MEDS ORDERED: POTASSIUM CHL 10 MEQ/WATER 50 ML IV PRN (02:30)
[2019-05-09] MEDS ORDERED: MAGNESIUM SULFATE 2 GM/WATER 50 ML IV PRN (02:30)
[2019-05-09] MEDS ORDERED: ALBUTEROL SULFATE 2.5 MG/0.5 ML NEB SOLUTION NEB PRN (02:30)
[2019-05-09] MEDS ORDERED: ONDANSETRON HCL 4 MG/2 ML VIAL IVP PRN (02:30)
[2019-05-09] MEDS ORDERED: POTASSIUM CHLORIDE 20 MEQ ER TABLET PO PRN (02:30)
[2019-05-09] MEDS ORDERED: ZOLPIDEM TARTRATE 10 MG TABLET PO PRN (02:30)
[2019-05-09] MEDS ORDERED: HYDROCODONE/ACETAMINOPHEN 5-325 MG TABLET PO PRN (02:30)
[2019-05-09] MEDS ORDERED: DEXTROSE 50%-WATER 25 GM/50 ML SYRINGE IVP PRN (02:45)
[2019-05-09] MEDS ORDERED: SODIUM CHLORIDE 0.9% 250 ML IV ONE (03:38)
[2019-05-09 04:05] VITALS: BP 113/68
[2019-05-09] MEDS: CefTRIAXone 1 GM/DEXTROSE 50 ML IV SCH (04:16)
[2019-05-09] MEDS: MORPHINE SULFATE 2 MG/ML SYRINGE IVP PRN ×4 (04:17→17:43)
[2019-05-09] MEDS: AZITHROMYCIN 500 MG/NS 250 ML IV SCH (06:12)
[2019-05-09] MEDS: INSULIN LISPRO 100 UNITS/ML SQ PRN ×2 (06:20→17:50)
[2019-05-09 06:28] LABS: BASOPHILS % (AUTO) 0.6 % (0.0-2.0); EOSINOPHILS % (AUTO) 1.4 % (1.0-6.0); HEMATOCRIT 32.8 % (41-53); HEMOGLOBIN 10.9 g/dL (13.5-17.5); LYMPHOCYTES # (AUTO) 0.9 K/uL (1.0-4.8); LYMPHOCYTES % (AUTO) 21.1 % (22.0-44.0); MEAN CORPUSCULAR HEMOGLOBIN 27.1 pg (26.0-34.0); MEAN CORPUSCULAR HGB CONC 33.2 G/dL (31.0-37.0); MEAN CORPUSCULAR VOLUME 82 fL (80-100); MONOCYTES # (AUTO) 0.5 K/uL (0.1-1.0); MONOCYTES % (AUTO) 11.1 % (2.0-9.0); NEUTROPHILS # (AUTO) 2.9 K/uL (1.8-7.7); NEUTROPHILS % (AUTO) 65.8 % (40.0-70.0); PLATELET COUNT (AUTO) 169 K/uL (150-450); RED BLOOD CELL COUNT(AUTO) 4.02 MIL/uL (4.50-5.90); RED CELL DISTRIBUTION WIDTH 17.9 % (11.5-14.5)
[2019-05-09 06:44] LABS: HEMOGLOBIN A1C 9.1 % (4.5-6.2)
[2019-05-09 06:53] LABS: ALANINE AMINOTRANSFERASE 17 U/L (12-78); ALBUMIN 3.1 g/dL (3.4-5.0); ALKALINE PHOSPHATASE 87 U/L (46-116); ANION GAP 7 mmol/L (8-16); ASPARTATE AMINOTRANSFERASE 16 U/L (15-37); BILIRUBIN,TOTAL 0.2 mg/dL (0.1-1.0); CALCIUM, TOTAL 8.1 mg/dL (8.8-10.5); CARBON DIOXIDE 26 mmol/L (22-29); CHLORIDE 106 mmol/L (98-107); CREATININE 0.89 mg/dL (0.60-1.30); GLOMERULAR FILTR. RATE CALC > 60 mL/min (>60); GLUCOSE,RANDOM 306 mg/dL (70-110); POTASSIUM 3.8 mmol/L (3.5-5.1); SODIUM SERUM 139 mmol/L (136-145); TOTAL PROTEIN, SERUM 6.8 g/dL (6.4-8.2); UREA NITROGEN, BLOOD 18 mg/dL (7-18)
[2019-05-09] MEDS: FUROSEMIDE 40 MG/4 ML VIAL IVP SCH (08:28)
[2019-05-09] MEDS: FAMOTIDINE 10 MG/ML 2 ML VIAL IVP SCH ×2 (08:28→21:20)
[2019-05-09] MEDS: CLOPIDOGREL BISULFATE 75 MG TABLET PO SCH (08:28)
[2019-05-09] MEDS: ATORVASTATIN CALCIUM 40 MG TABLET PO SCH (08:29)
[2019-05-09] MEDS: INSULIN GLARGINE,HUM.REC.ANLOG 100 UNITS/ML SQ SCH ×2 (08:40→21:22)
[2019-05-09] MEDS: DOCUSATE SODIUM 100 MG CAPSULE PO SCH ×2 (08:44→21:20)
[2019-05-09] MEDS ORDERED: METOPROLOL SUCCINATE 50 MG ER TABLET PO SCH (09:00)
[2019-05-09 09:44] LABS: GLUCOMETER DEV NAME(LOC) 5S.2A; GLUCOSE,POINT OF CARE 301 MG/DL (70-110)
[2019-05-09 10:35] VITALS: BP 103/59
[2019-05-09 11:15] VITALS: BP 103/59
[2019-05-09] MEDS ORDERED: DiphenhydrAMINE HCL 50 MG/ML VIAL IVP PRN (12:45)
[2019-05-09] MEDS: DiphenhydrAMINE HCL 50 MG/ML VIAL IVP PRN ×2 (12:55→21:20)
[2019-05-09 15:12] VITALS: BP 100/62
[2019-05-09 20:29] VITALS: BP 109/74
[2019-05-09] MEDS: HEPARIN SODIUM,PORCINE 5,000 UNITS/ML VIAL SQ SCH (21:19)
[2019-05-09 23:44] VITALS: BP 110/79
[2019-05-10] VITALS (8 sets, daily range): BP systolic 91–127; BP diastolic 56–75
[2019-05-10 01:02] LABS: GLUCOMETER DEV NAME(LOC) 5S.2A; GLUCOSE,POINT OF CARE 92 MG/DL (70-110)
[2019-05-10 01:02] LABS: GLUCOMETER DEV NAME(LOC) 5S.2A; GLUCOSE,POINT OF CARE 259 MG/DL (70-110)
[2019-05-10 01:02] LABS: GLUCOMETER DEV NAME(LOC) 5S.2A; GLUCOSE,POINT OF CARE 211 MG/DL (70-110)
[2019-05-10] MEDS: CefTRIAXone 1 GM/DEXTROSE 50 ML IV SCH (03:36)
[2019-05-10] MEDS: MORPHINE SULFATE 2 MG/ML SYRINGE IVP PRN ×4 (03:37→20:57)
[2019-05-10] MEDS: INSULIN LISPRO 100 UNITS/ML SQ PRN ×4 (06:24→21:18)
[2019-05-10 06:41] LABS: GLUCOMETER DEV NAME(LOC) 5N.2; GLUCOSE,POINT OF CARE 204 MG/DL (70-110)
[2019-05-10 06:42] LABS: GLUCOMETER DEV NAME(LOC) 5N.2; GLUCOSE,POINT OF CARE 287 MG/DL (70-110)
[2019-05-10 08:24] LABS: CHOL/HDL RATIO 1.9 (4.2-7.3); MAGNESIUM 1.6 mg/dL (1.80-2.40)
[2019-05-10] MEDS: FUROSEMIDE 40 MG/4 ML VIAL IVP SCH (09:00)
[2019-05-10] MEDS: DOCUSATE SODIUM 100 MG CAPSULE PO SCH ×2 (09:00→21:00)
[2019-05-10] MEDS: HEPARIN SODIUM,PORCINE 5,000 UNITS/ML VIAL SQ SCH ×2 (09:00→21:00)
[2019-05-10] MEDS: FAMOTIDINE 10 MG/ML 2 ML VIAL IVP SCH ×2 (09:00→20:58)
[2019-05-10] MEDS: METOPROLOL SUCCINATE 50 MG ER TABLET PO SCH (09:00)
[2019-05-10] MEDS: ATORVASTATIN CALCIUM 40 MG TABLET PO SCH (09:30)
[2019-05-10] MEDS: CLOPIDOGREL BISULFATE 75 MG TABLET PO SCH (09:31)
[2019-05-10] MEDS: MAGNESIUM OXIDE 400 MG TABLET PO PRN ×2 (09:31→17:21)
[2019-05-10] MEDS: INSULIN GLARGINE,HUM.REC.ANLOG 100 UNITS/ML SQ SCH ×2 (09:38→21:18)
[2019-05-10] MEDS: DiphenhydrAMINE HCL 50 MG/ML VIAL IVP PRN ×2 (13:16→21:34)
[2019-05-10] MEDS: AZITHROMYCIN 500 MG/NS 250 ML IV SCH (17:21)
[2019-05-10] MEDS: IPRATROPIUM BROMIDE 0.5 MG/2.5 ML NEB SOLUTION NEB PRN (19:42)
[2019-05-10 21:36] LABS: GLUCOMETER DEV NAME(LOC) 5S.2A; GLUCOSE,POINT OF CARE 172 MG/DL (70-110)
[2019-05-10 21:36] LABS: GLUCOMETER DEV NAME(LOC) 5S.2A; GLUCOSE,POINT OF CARE 184 MG/DL (70-110)
[2019-05-10 21:36] LABS: GLUCOMETER DEV NAME(LOC) 5S.2A; GLUCOSE,POINT OF CARE 147 MG/DL (70-110)
[2019-05-11] VITALS (7 sets, daily range): BP systolic 94–106; BP diastolic 58–75
[2019-05-11] MEDS: MAGNESIUM OXIDE 400 MG TABLET PO PRN (01:06)
[2019-05-11] MEDS: MORPHINE SULFATE 2 MG/ML SYRINGE IVP PRN ×4 (01:14→17:32)
[2019-05-11 02:53] LABS: GLUCOMETER DEV NAME(LOC) 5N.2; GLUCOSE,POINT OF CARE 251 MG/DL (70-110)
[2019-05-11] MEDS: CefTRIAXone 1 GM/DEXTROSE 50 ML IV SCH (03:00)
[2019-05-11] MEDS: DiphenhydrAMINE HCL 50 MG/ML VIAL IVP PRN ×2 (06:06→12:43)
[2019-05-11] MEDS: INSULIN LISPRO 100 UNITS/ML SQ PRN ×3 (06:14→20:36)
[2019-05-11 07:50] LABS: GLUCOMETER DEV NAME(LOC) 5S.2A; GLUCOSE,POINT OF CARE 196 MG/DL (70-110)
[2019-05-11] MEDS: DOCUSATE SODIUM 100 MG CAPSULE PO SCH ×2 (08:29→21:00)
[2019-05-11] MEDS: FAMOTIDINE 10 MG/ML 2 ML VIAL IVP SCH ×2 (08:30→21:00)
[2019-05-11] MEDS: FUROSEMIDE 40 MG/4 ML VIAL IVP SCH (08:30)
[2019-05-11] MEDS: HEPARIN SODIUM,PORCINE 5,000 UNITS/ML VIAL SQ SCH ×3 (08:30→21:00)
[2019-05-11] MEDS: ATORVASTATIN CALCIUM 40 MG TABLET PO SCH (08:31)
[2019-05-11] MEDS: CLOPIDOGREL BISULFATE 75 MG TABLET PO SCH (08:31)
[2019-05-11] MEDS: METOPROLOL SUCCINATE 50 MG ER TABLET PO SCH (08:31)
[2019-05-11] MEDS: INSULIN GLARGINE,HUM.REC.ANLOG 100 UNITS/ML SQ SCH ×2 (08:44→20:35)
[2019-05-11] MEDS: ALPRAZolam 0.5 MG TABLET PO PRN (12:39)
[2019-05-11] MEDS: IPRATROPIUM BROMIDE 0.5 MG/2.5 ML NEB SOLUTION NEB PRN (14:49)
[2019-05-11] MEDS: AZITHROMYCIN 250 MG TABLET PO SCH (20:37)
[2019-05-12 01:00] VITALS: BP 100/71
[2019-05-12] MEDS: MORPHINE SULFATE 2 MG/ML SYRINGE IVP PRN (01:15)
[2019-05-12 05:01] LABS: GLUCOMETER DEV NAME(LOC) 5N.2; GLUCOSE,POINT OF CARE 219 MG/DL (70-110)
[2019-05-12 05:23] VITALS: BP 98/74
[2019-05-12] MEDS: INSULIN LISPRO 100 UNITS/ML SQ PRN ×3 (05:51→17:39)
[2019-05-12] MEDS: ALPRAZolam 0.5 MG TABLET PO PRN (05:54)
[2019-05-12 06:45] LABS: GLUCOMETER DEV NAME(LOC) 5S.2A; GLUCOSE,POINT OF CARE 289 MG/DL (70-110)
[2019-05-12 07:45] VITALS: BP 98/63
[2019-05-12] MEDS: ATORVASTATIN CALCIUM 40 MG TABLET PO SCH (08:24)
[2019-05-12] MEDS: DOCUSATE SODIUM 100 MG CAPSULE PO SCH ×2 (08:24→21:00)
[2019-05-12] MEDS: AZITHROMYCIN 250 MG TABLET PO SCH (08:24)
[2019-05-12] MEDS: METOPROLOL SUCCINATE 50 MG ER TABLET PO SCH (08:24)
[2019-05-12] MEDS: FUROSEMIDE 40 MG/4 ML VIAL IVP SCH (08:26)
[2019-05-12] MEDS: FAMOTIDINE 10 MG/ML 2 ML VIAL IVP SCH ×2 (08:27→21:00)
[2019-05-12] MEDS: INSULIN GLARGINE,HUM.REC.ANLOG 100 UNITS/ML SQ SCH ×2 (08:35→21:00)
[2019-05-12] MEDS: HEPARIN SODIUM,PORCINE 5,000 UNITS/ML VIAL SQ SCH ×2 (09:00→21:00)
[2019-05-12] MEDS: CLOPIDOGREL BISULFATE 75 MG TABLET PO SCH (09:00)
[2019-05-12 13:17] VITALS: BP 95/67
[2019-05-12 17:26] LABS: GLUCOMETER DEV NAME(LOC) 5N.2; GLUCOSE,POINT OF CARE 186 MG/DL (70-110)
[2019-05-12] MEDS: IPRATROPIUM BROMIDE 0.5 MG/2.5 ML NEB SOLUTION NEB PRN (19:46)
[2019-05-12 20:52] LABS: GLUCOMETER DEV NAME(LOC) 5S.2A; GLUCOSE,POINT OF CARE 270 MG/DL (70-110)
[2019-05-12] MEDS: LOSARTAN POTASSIUM 25 MG TABLET PO SCH (21:00)
[2019-05-13 08:58] VITALS: BP 98/72
[2019-05-13] MEDS: FAMOTIDINE 10 MG/ML 2 ML VIAL IVP SCH ×2 (08:59→21:00)
[2019-05-13] MEDS: FUROSEMIDE 40 MG/4 ML VIAL IVP SCH (08:59)
[2019-05-13] MEDS: DOCUSATE SODIUM 100 MG CAPSULE PO SCH ×2 (09:00→21:00)
[2019-05-13] MEDS: METOPROLOL SUCCINATE 50 MG ER TABLET PO SCH (09:00)
[2019-05-13] MEDS: LOSARTAN POTASSIUM 25 MG TABLET PO SCH ×2 (09:00→21:00)
[2019-05-13] MEDS: HEPARIN SODIUM,PORCINE 5,000 UNITS/ML VIAL SQ SCH ×2 (09:00→21:00)
[2019-05-13] MEDS: CLOPIDOGREL BISULFATE 75 MG TABLET PO SCH (09:02)
[2019-05-13] MEDS: ATORVASTATIN CALCIUM 40 MG TABLET PO SCH (09:03)
[2019-05-13] MEDS: AZITHROMYCIN 250 MG TABLET PO SCH (09:03)
[2019-05-13] MEDS: INSULIN GLARGINE,HUM.REC.ANLOG 100 UNITS/ML SQ SCH ×2 (09:11→21:00)
[2019-05-13] MEDS: INSULIN LISPRO 100 UNITS/ML SQ PRN ×2 (11:45→20:27)
[2019-05-13] MEDS ORDERED: HYDROmorphone HCL 2 MG TABLET PO PRN (14:15)
[2019-05-13 15:30] VITALS: BP 105/64
[2019-05-13] MEDS: PROMETHAZINE HCL 25 MG TABLET PO PRN (15:34)
[2019-05-13] MEDS: FUROSEMIDE 40 MG TABLET PO SCH (15:34)
[2019-05-13 15:35] LABS: GLUCOMETER DEV NAME(LOC) 5N.2; GLUCOSE,POINT OF CARE 294 MG/DL (70-110)
[2019-05-13 20:16] VITALS: BP 103/65
[2019-05-13] MEDS: ALPRAZolam 0.5 MG TABLET PO PRN (20:26)
[2019-05-13 22:29] LABS: GLUCOMETER DEV NAME(LOC) 5S.2A; GLUCOSE,POINT OF CARE 322 MG/DL (70-110)
[2019-05-13 22:29] LABS: GLUCOMETER DEV NAME(LOC) 5S.2A; GLUCOSE,POINT OF CARE 118 MG/DL (70-110)
[2019-05-13 22:29] LABS: GLUCOMETER DEV NAME(LOC) 5S.2A; GLUCOSE,POINT OF CARE 354 MG/DL (70-110)
[2019-05-14] VITALS (16 sets, daily range): BP systolic 95–141; BP diastolic 66–89
[2019-05-14] MEDS: DiphenhydrAMINE HCL 50 MG/ML VIAL IVP PRN ×3 (01:01→17:38)
[2019-05-14] MEDS: MORPHINE SULFATE 2 MG/ML SYRINGE IVP PRN ×3 (01:51→22:38)
[2019-05-14 06:55] LABS: BASOPHILS % (AUTO) 0.3 % (0.0-2.0); HEMATOCRIT 31.2 % (41-53); HEMOGLOBIN 10.2 g/dL (13.5-17.5); LYMPHOCYTES # (AUTO) 0.9 K/uL (1.0-4.8); LYMPHOCYTES % (AUTO) 22.4 % (22.0-44.0); MEAN CORPUSCULAR HEMOGLOBIN 26.9 pg (26.0-34.0); MEAN CORPUSCULAR HGB CONC 32.8 G/dL (31.0-37.0); MEAN CORPUSCULAR VOLUME 82 fL (80-100); MONOCYTES # (AUTO) 0.5 K/uL (0.1-1.0); MONOCYTES % (AUTO) 11.5 % (2.0-9.0); NEUTROPHILS # (AUTO) 2.5 K/uL (1.8-7.7); NEUTROPHILS % (AUTO) 61.8 % (40.0-70.0); PLATELET COUNT (AUTO) 136 K/uL (150-450); RED CELL DISTRIBUTION WIDTH 17.9 % (11.5-14.5)
[2019-05-14 07:08] LABS: INR 1.3 (0.9-1.1); PROTHROMBIN TIME 13.4 SEC (9.4-11.6)
[2019-05-14 07:39] LABS: ALANINE AMINOTRANSFERASE 25 U/L (12-78); ALKALINE PHOSPHATASE 88 U/L (46-116); ANION GAP 5 mmol/L (8-16); ASPARTATE AMINOTRANSFERASE 16 U/L (15-37); BILIRUBIN,TOTAL 0.4 mg/dL (0.1-1.0); CALCIUM, TOTAL 8.8 mg/dL (8.8-10.5); CARBON DIOXIDE 30 mmol/L (22-29); CHLORIDE 101 mmol/L (98-107); CREATININE 0.89 mg/dL (0.60-1.30); GLOMERULAR FILTR. RATE CALC > 60 mL/min (>60); GLUCOSE,RANDOM 278 mg/dL (70-110); POTASSIUM 4.3 mmol/L (3.5-5.1); SODIUM SERUM 136 mmol/L (136-145); UREA NITROGEN, BLOOD 23 mg/dL (7-18)
[2019-05-14] MEDS: LOSARTAN POTASSIUM 25 MG TABLET PO SCH ×3 (08:39→20:59)
[2019-05-14] MEDS: HEPARIN SODIUM,PORCINE 5,000 UNITS/ML VIAL SQ SCH ×2 (08:40→20:58)
[2019-05-14] MEDS: METOPROLOL SUCCINATE 50 MG ER TABLET PO SCH (08:40)
[2019-05-14] MEDS: CLOPIDOGREL BISULFATE 75 MG TABLET PO SCH (08:40)
[2019-05-14] MEDS: DOCUSATE SODIUM 100 MG CAPSULE PO SCH ×2 (08:40→20:58)
[2019-05-14] MEDS: FAMOTIDINE 10 MG/ML 2 ML VIAL IVP SCH ×2 (08:56→20:57)
[2019-05-14] MEDS: FUROSEMIDE 40 MG TABLET PO SCH (09:00)
[2019-05-14] MEDS: ATORVASTATIN CALCIUM 40 MG TABLET PO SCH (09:01)
[2019-05-14] MEDS: INSULIN GLARGINE,HUM.REC.ANLOG 100 UNITS/ML SQ SCH ×2 (09:05→20:30)
[2019-05-14] MEDS: MAGNESIUM OXIDE 400 MG TABLET PO PRN ×3 (09:05→22:37)
[2019-05-14 11:02] LABS: GLUCOMETER DEV NAME(LOC) 5N.2; GLUCOSE,POINT OF CARE 258 MG/DL (70-110)
[2019-05-14] MEDS ORDERED: PHENYLEPHRINE HCL 10 MG/ML VIAL IVP ONE (12:00)
[2019-05-14] MEDS ORDERED: MIDAZOLAM HCL 2 MG/2 ML VIAL IVP ONE (12:00)
[2019-05-14] MEDS ORDERED: ROCURONIUM BROMIDE 10 MG/ML 5 ML VIAL IVP ONE (12:00)
[2019-05-14] MEDS ORDERED: FentaNYL CITRATE-PF 100 MCG/2 ML VIAL IVP ONE (12:00)
[2019-05-14] MEDS ORDERED: SODIUM BICARBONATE 50 MEQ/50 ML VIAL ONE (14:27)
[2019-05-14] MEDS ORDERED: LIDOCAINE/PF 1% 30 ML VIAL ONE ×2 (14:27→15:17)
[2019-05-14] MEDS ORDERED: BUPIVACAINE LIPOSOME/PF 1.3%-13.3MG/ML SUSPENSION 10 ML VIAL INJ ONE (14:45)
[2019-05-14] MEDS ORDERED: SODIUM CHLORIDE 0.9% 500 ML IV ONE (15:04)
[2019-05-14] MEDS ORDERED: LIDOCAINE 1% 30 ML/SOD BICARB 8.4% 4 ML SQ ONE (15:10)
[2019-05-14] MEDS ORDERED: IOHEXOL 300 MG/ML 50 ML VIAL ONE (15:19)
[2019-05-14] MEDS: INSULIN LISPRO 100 UNITS/ML SQ PRN ×2 (17:42→20:32)
[2019-05-14] MEDS ORDERED: MORPHINE SULFATE 2 MG/ML SYRINGE IVP ONE ×2 (18:00→18:15)
[2019-05-14] MEDS ORDERED: SODIUM CHLORIDE 0.9% 250 ML IV ONE (20:19)
[2019-05-14] MEDS: ALPRAZolam 0.5 MG TABLET PO PRN (20:21)
[2019-05-14] MEDS: CeFAZolin 1 GM/DEXTROSE 50 ML IV SCH (20:22)
[2019-05-14 22:03] LABS: GLUCOMETER DEV NAME(LOC) 5N.2; GLUCOSE,POINT OF CARE 139 MG/DL (70-110)
[2019-05-15 00:36] VITALS: BP 102/65
[2019-05-15] MEDS: DiphenhydrAMINE HCL 50 MG/ML VIAL IVP PRN ×3 (02:00→19:32)
[2019-05-15] MEDS: CeFAZolin 1 GM/DEXTROSE 50 ML IV SCH ×2 (02:00→08:43)
[2019-05-15] MEDS: MORPHINE SULFATE 2 MG/ML SYRINGE IVP PRN ×5 (03:52→20:58)
[2019-05-15 04:23] VITALS: BP 119/74
[2019-05-15] MEDS: PROMETHAZINE HCL 25 MG TABLET PO PRN ×2 (05:45→16:45)
[2019-05-15] MEDS: INSULIN LISPRO 100 UNITS/ML SQ PRN ×4 (06:23→21:05)
[2019-05-15 06:41] LABS: GLUCOMETER DEV NAME(LOC) 5N.2; GLUCOSE,POINT OF CARE 227 MG/DL (70-110)
[2019-05-15] MEDS: IPRATROPIUM BROMIDE 0.5 MG/2.5 ML NEB SOLUTION NEB PRN (07:09)
[2019-05-15 07:11] VITALS: BP 104/74
[2019-05-15] MEDS: HEPARIN SODIUM,PORCINE 5,000 UNITS/ML VIAL SQ SCH ×3 (08:38→21:00)
[2019-05-15] MEDS: FAMOTIDINE 10 MG/ML 2 ML VIAL IVP SCH ×2 (08:38→21:00)
[2019-05-15] MEDS: ATORVASTATIN CALCIUM 40 MG TABLET PO SCH (08:40)
[2019-05-15] MEDS: CLOPIDOGREL BISULFATE 75 MG TABLET PO SCH (08:40)
[2019-05-15] MEDS: DOCUSATE SODIUM 100 MG CAPSULE PO SCH ×3 (08:41→21:00)
[2019-05-15] MEDS: INSULIN GLARGINE,HUM.REC.ANLOG 100 UNITS/ML SQ SCH ×2 (08:42→21:00)
[2019-05-15] MEDS: FUROSEMIDE 40 MG TABLET PO SCH (08:46)
[2019-05-15] MEDS: LOSARTAN POTASSIUM 25 MG TABLET PO SCH ×2 (08:55→21:00)
[2019-05-15] MEDS: METOPROLOL SUCCINATE 50 MG ER TABLET PO SCH (08:55)
[2019-05-15 09:40] LABS: GLUCOMETER DEV NAME(LOC) 5N.2; GLUCOSE,POINT OF CARE 183 MG/DL (70-110)
[2019-05-15] MEDS: ALPRAZolam 0.5 MG TABLET PO PRN (11:29)
[2019-05-15 11:47] LABS: GLUCOMETER DEV NAME(LOC) 5S.2A; GLUCOSE,POINT OF CARE 285 MG/DL (70-110)
[2019-05-15 11:47] LABS: GLUCOMETER DEV NAME(LOC) 5S.2A; GLUCOSE,POINT OF CARE 173 MG/DL (70-110)
[2019-05-15 11:47] LABS: GLUCOMETER DEV NAME(LOC) 5S.2A; GLUCOSE,POINT OF CARE 327 MG/DL (70-110)
[2019-05-15 11:48] LABS: GLUCOMETER DEV NAME(LOC) 5S.2A; GLUCOSE,POINT OF CARE 197 MG/DL (70-110)
[2019-05-15 11:57] VITALS: BP 104/70
[2019-05-15 16:59] VITALS: BP 101/67
[2019-05-15 17:08] LABS: GLUCOMETER DEV NAME(LOC) 5S.2A; GLUCOSE,POINT OF CARE 210 MG/DL (70-110)
[2019-05-15] MEDS: IPRATROPIUM BROMIDE 0.5 MG/2.5 ML NEB SOLUTION NEB SCH ×2 (19:00→23:00)
[2019-05-15 19:58] VITALS: BP 100/75
[2019-05-16] MEDS: MORPHINE SULFATE 2 MG/ML SYRINGE IVP PRN ×4 (01:07→19:21)
[2019-05-16] MEDS: IPRATROPIUM BROMIDE 0.5 MG/2.5 ML NEB SOLUTION NEB PRN (01:20)
[2019-05-16] MEDS: IPRATROPIUM BROMIDE 0.5 MG/2.5 ML NEB SOLUTION NEB SCH ×6 (03:00→23:00)
[2019-05-16] MEDS: DOCUSATE SODIUM 100 MG CAPSULE PO SCH ×2 (08:36→20:38)
[2019-05-16] MEDS: DiphenhydrAMINE HCL 50 MG/ML VIAL IVP PRN ×2 (08:39→17:49)
[2019-05-16] MEDS: FUROSEMIDE 40 MG TABLET PO SCH (08:39)
[2019-05-16] MEDS: ATORVASTATIN CALCIUM 40 MG TABLET PO SCH (09:00)
[2019-05-16] MEDS: METOPROLOL SUCCINATE 50 MG ER TABLET PO SCH (09:00)
[2019-05-16] MEDS: INSULIN GLARGINE,HUM.REC.ANLOG 100 UNITS/ML SQ SCH ×2 (09:00→20:37)
[2019-05-16] MEDS: FAMOTIDINE 10 MG/ML 2 ML VIAL IVP SCH ×2 (09:00→20:39)
[2019-05-16] MEDS: LOSARTAN POTASSIUM 25 MG TABLET PO SCH ×2 (09:00→20:38)
[2019-05-16] MEDS: HEPARIN SODIUM,PORCINE 5,000 UNITS/ML VIAL SQ SCH ×2 (09:00→20:38)
[2019-05-16 11:05] VITALS: BP 106/75
[2019-05-16 11:24] LABS: SPECIMENTYPE,BODY FLUID THORACENTESIS
[2019-05-16 11:29] LABS: GLUCOMETER DEV NAME(LOC) 5N.2; GLUCOSE,POINT OF CARE 126 MG/DL (70-110)
[2019-05-16 11:29] LABS: GLUCOMETER DEV NAME(LOC) 5N.2; GLUCOSE,POINT OF CARE 214 MG/DL (70-110)
[2019-05-16 13:53] LABS: APPEARANCE,SPUN,BODY FLUID CLEAR (CLEAR); APPEARANCE,UNSPUN,BODY FLUID CLOUDY (CLEAR); BASOPHILS,BODY FLUID 0 %; COLOR,BODY FLUID YELLOW (LT YELLOW); EOSINOPHILS,BF (ANAL) 0 %; LYMPHOCYTES,BODY FLUID 95 %; MONOCYTES,BODY FLUID 0 %; NEUTROPHILS,BODY FLUID 5 %; TOTAL VOLUME,BODY FLUID 1750 mL; WBC, BODY FLUID 190 /cu. mm.
[2019-05-16 15:10] VITALS: BP 113/74
[2019-05-16 20:06] VITALS: BP 107/71
[2019-05-16] MEDS: ALPRAZolam 0.5 MG TABLET PO PRN (20:28)
[2019-05-16] MEDS: INSULIN LISPRO 100 UNITS/ML SQ PRN (20:35)
[2019-05-17] MEDS: MORPHINE SULFATE 2 MG/ML SYRINGE IVP PRN ×2 (01:20→08:41)
[2019-05-17] MEDS: IPRATROPIUM BROMIDE 0.5 MG/2.5 ML NEB SOLUTION NEB SCH (02:41)
[2019-05-17] MEDS: DiphenhydrAMINE HCL 50 MG/ML VIAL IVP PRN (03:09)
[2019-05-17 03:11] VITALS: BP 121/80
[2019-05-17 06:21] LABS: GLUCOMETER DEV NAME(LOC) 5N.2; GLUCOSE,POINT OF CARE 339 MG/DL (70-110)
[2019-05-17] MEDS: HEPARIN SODIUM,PORCINE 5,000 UNITS/ML VIAL SQ SCH (09:00)
[2019-05-17] MEDS: DOCUSATE SODIUM 100 MG CAPSULE PO SCH (09:00)
[2019-05-17] MEDS: FAMOTIDINE 10 MG/ML 2 ML VIAL IVP SCH (09:00)
[2019-05-17] MEDS: FUROSEMIDE 40 MG TABLET PO SCH (09:50)
[2019-05-17] MEDS: ATORVASTATIN CALCIUM 40 MG TABLET PO SCH (09:50)
[2019-05-17] MEDS: LOSARTAN POTASSIUM 25 MG TABLET PO SCH (09:50)
[2019-05-17] MEDS: METOPROLOL SUCCINATE 50 MG ER TABLET PO SCH (09:50)
[2019-05-17] MEDS: INSULIN LISPRO 100 UNITS/ML SQ PRN (10:00)
[2019-05-17] MEDS: INSULIN GLARGINE,HUM.REC.ANLOG 100 UNITS/ML SQ SCH (10:01)
[2019-05-17 10:07] LABS: GLUCOMETER DEV NAME(LOC) 5S.2A; GLUCOSE,POINT OF CARE 295 MG/DL (70-110)
[2019-05-17] MEDS ORDERED: LOSA25TA71 PO (10:45)
== END 2019-05-17 15:00 | disposition home or self-care (01) | DRG 227 ==
LOC: EMS 16:10 → 5S 20:49 → UNDOADMIN 20:49
PROVIDERS: ADMIT Hospitalist; ATTEND Hospitalist
PROC: 05HY33Z Insertion of Infusion Device into Upper Vein, Percutaneous Approach (ICD-10-PCS; 2019-05-13)
PROC: B54NZZA Ultrasonography of Left Upper Extremity Veins, Guidance (ICD-10-PCS; 2019-05-13)
PROC: 0JH608Z Insertion of Defibrillator Generator into Chest Subcutaneous Tissue and Fascia, Open Approach (ICD-10-PCS; principal; 2019-05-14)
PROC: 02HK3KZ Insertion of Defibrillator Lead into Right Ventricle, Percutaneous Approach (ICD-10-PCS; 2019-05-14)
PROC: 0W993ZZ Drainage of Right Pleural Cavity, Percutaneous Approach (ICD-10-PCS; 2019-05-16)
DX: I50.23 Acute on chronic systolic (congestive) heart failure (principal); J98.11 Atelectasis; J90 Pleural effusion, not elsewhere classified; I25.10 Atherosclerotic heart disease of native coronary artery without angina pectoris; I25.5 Ischemic cardiomyopathy; E78.5 Hyperlipidemia, unspecified; D64.9 Anemia, unspecified; E11.65 Type 2 diabetes mellitus with hyperglycemia; I48.0 Paroxysmal atrial fibrillation; R55 Syncope and collapse; Z91.19 Patient's noncompliance with other medical treatment and regimen; Z79.4 Long term (current) use of insulin; I25.2 Old myocardial infarction; Z90.49 Acquired absence of other specified parts of digestive tract; Z95.1 Presence of aortocoronary bypass graft; Z83.3 Family history of diabetes mellitus; Z82.49 Family history of ischemic heart disease and other diseases of the circulatory system; Z87.891 Personal history of nicotine dependence; Z88.8 Allergy status to other drugs, medicaments and biological substances; Z79.01 Long term (current) use of anticoagulants; Z95.5 Presence of coronary angioplasty implant and graft
CPT/HCPCS: 32555; 33249; 36245; 36569; 76000; 76937; 76942; 82465; 82945; 83036; 83615; 83735; 83986; 84157; 87015; 87070; 87101; 87205; 87206; 88108; 89051; 93005; 93306; 94640; 96374; 96375; 99291; J0456; J0690; J0696; J1200; J1644; J1815; J1885; J1940; J2250; J2270; J2370; J3010; J3475; J3490; J7050; Q9967

== ENCOUNTER 2019-06-02 18:55 | Inpatient (IN) | payer MEDICARE ==
[~2019-06-02] VITALS: Ht 170.2 cm; Wt 74.4 kg
[~2019-06-02 18:55] MED LIST changes: +FURO20 PO; +LOSA25TA71 PO
[2019-06-02 19:14] LABS: GLUCOSE,POINT OF CARE 169 MG/DL (70-110)
[2019-06-02 19:30] LABS: BASOPHILS % (AUTO) 0.6 % (0.0-2.0); EOSINOPHILS % (AUTO) 2.3 % (1.0-6.0); HEMATOCRIT 34.4 % (41-53); HEMOGLOBIN 11.2 g/dL (13.5-17.5); LYMPHOCYTES # (AUTO) 0.8 K/uL (1.0-4.8); LYMPHOCYTES % (AUTO) 11.1 % (22.0-44.0); MEAN CORPUSCULAR HEMOGLOBIN 26.6 pg (26.0-34.0); MEAN CORPUSCULAR HGB CONC 32.7 G/dL (31.0-37.0); MEAN CORPUSCULAR VOLUME 81 fL (80-100); MONOCYTES # (AUTO) 0.6 K/uL (0.1-1.0); MONOCYTES % (AUTO) 8.2 % (2.0-9.0); NEUTROPHILS # (AUTO) 5.4 K/uL (1.8-7.7); NEUTROPHILS % (AUTO) 77.8 % (40.0-70.0); PLATELET COUNT (AUTO) 168 K/uL (150-450); RED BLOOD CELL COUNT(AUTO) 4.23 MIL/uL (4.50-5.90); RED CELL DISTRIBUTION WIDTH 19.4 % (11.5-14.5)
[2019-06-02 19:36] LABS: ANION GAP 11 mmol/L (8-16); CALCIUM, TOTAL 8.9 mg/dL (8.8-10.5); CARBON DIOXIDE 24 mmol/L (22-29); CHLORIDE 103 mmol/L (98-107); CREATININE 0.91 mg/dL (0.60-1.30); GLOMERULAR FILTR. RATE CALC > 60 mL/min (>60); GLUCOSE,RANDOM 180 mg/dL (70-110); SODIUM SERUM 138 mmol/L (136-145); UREA NITROGEN, BLOOD 19 mg/dL (7-18)
[2019-06-02 19:41] LABS: ALANINE AMINOTRANSFERASE 26 U/L (12-78); ALBUMIN 3.8 g/dL (3.4-5.0); ALKALINE PHOSPHATASE 103 U/L (46-116); ASPARTATE AMINOTRANSFERASE 21 U/L (15-37); BILIRUBIN,TOTAL 0.5 mg/dL (0.1-1.0)
[2019-06-02] MEDS ORDERED: ACETAMINOPHEN 325 MG TABLET PO ONE (22:00)
[2019-06-02] MEDS ORDERED: ASPIRIN 325 MG TABLET PO ONE (22:00)
[2019-06-02] MEDS ORDERED: MORPHINE SULFATE 2 MG/ML SYRINGE IVP ONE (22:15)
[2019-06-02] MEDS ORDERED: LORazepam 2 MG/ML VIAL IVP ONE (22:15)
[2019-06-02] MEDS ORDERED: 0.9% SODIUM CHLORIDE 10 ML SYRINGE IVP PRN (22:30)
[2019-06-02] MEDS ORDERED: ACETAMINOPHEN 325 MG TABLET PO PRN (22:30)
[2019-06-03] MEDS ORDERED: HYDROmorphone 2 MG/ML SYRINGE IVP ONE (00:45)
[2019-06-03 03:27] VITALS: BP 125/73
[2019-06-03] MEDS ORDERED: DiphenhydrAMINE HCL 50 MG/ML VIAL IVP PRN (03:45)
[2019-06-03] MEDS ORDERED: MORPHINE SULFATE 2 MG/ML SYRINGE IVP ONE (06:00)
[2019-06-03] MEDS ORDERED: ZOLPIDEM TARTRATE 10 MG TABLET PO PRN (06:30)
[2019-06-03] MEDS ORDERED: ACETAMINOPHEN 325 MG TABLET PO PRN (06:30)
[2019-06-03] MEDS ORDERED: ONDANSETRON HCL 4 MG/2 ML VIAL IVP PRN (06:30)
[2019-06-03] MEDS ORDERED: ASPIRIN 81 MG CHEWABLE TABLET PO SCH (09:00)
[2019-06-03] MEDS ORDERED: DOCUSATE SODIUM 100 MG CAPSULE PO SCH (09:00)
[2019-06-03] MEDS ORDERED: FAMOTIDINE 10 MG/ML 2 ML VIAL IVP SCH (09:00)
== END 2019-06-03 08:15 | disposition left against medical advice (07) | DRG 316 ==
LOC: EMS 18:57 → 5S 23:07
PROVIDERS: ADMIT Internal Medicine; ATTEND Internal Medicine
DX: T82.118A Breakdown (mechanical) of other cardiac electronic device, initial encounter (principal); E78.00 Pure hypercholesterolemia, unspecified; I48.91 Unspecified atrial fibrillation; F17.210 Nicotine dependence, cigarettes, uncomplicated; I11.0 Hypertensive heart disease with heart failure; I50.9 Heart failure, unspecified; M47.9 Spondylosis, unspecified; E11.65 Type 2 diabetes mellitus with hyperglycemia; I25.5 Ischemic cardiomyopathy; I25.10 Atherosclerotic heart disease of native coronary artery without angina pectoris; Z53.29 Procedure and treatment not carried out because of patient's decision for other reasons; Y83.9 Surgical procedure, unspecified as the cause of abnormal reaction of the patient, or of later complication, without mention of misadventure at the time of the procedure; Y92.89 Other specified places as the place of occurrence of the external cause; I25.2 Old myocardial infarction; Z95.810 Presence of automatic (implantable) cardiac defibrillator; Z83.3 Family history of diabetes mellitus; Z82.49 Family history of ischemic heart disease and other diseases of the circulatory system; Z72.89 Other problems related to lifestyle; Z88.8 Allergy status to other drugs, medicaments and biological substances; Z90.49 Acquired absence of other specified parts of digestive tract; Z95.1 Presence of aortocoronary bypass graft
CPT/HCPCS: 93005; 96374; 96375; G0480; J1170; J1200; J2060; J2270; J3490

== ENCOUNTER 2019-06-09 22:39 | Inpatient (IN) | payer MEDICARE, MEDICAID ==
[~2019-06-09] VITALS: Ht 175.3 cm; Wt 74.1 kg
[~2019-06-09 22:39] MED LIST changes: -FURO20 PO; -LOSA25TA71 PO
[2019-06-09 23:02] LABS: GLUCOSE,POINT OF CARE 247 MG/DL (70-110)
[2019-06-09] MEDS ORDERED: ACETAMINOPHEN 500 MG TABLET PO ONE (23:15)
[2019-06-09] MEDS ORDERED: DiphenhydrAMINE HCL 50 MG/ML VIAL IVP ONE (23:45)
[2019-06-10 00:02] LABS: BASOPHILS % (AUTO) 0.5 % (0.0-2.0); EOSINOPHILS % (AUTO) 2.3 % (1.0-6.0); HEMATOCRIT 30.3 % (41-53); HEMOGLOBIN 10.2 g/dL (13.5-17.5); LYMPHOCYTES % (AUTO) 15.7 % (22.0-44.0); MEAN CORPUSCULAR HEMOGLOBIN 27.1 pg (26.0-34.0); MEAN CORPUSCULAR HGB CONC 33.6 G/dL (31.0-37.0); MEAN CORPUSCULAR VOLUME 81 fL (80-100); MONOCYTES # (AUTO) 0.5 K/uL (0.1-1.0); MONOCYTES % (AUTO) 8.9 % (2.0-9.0); NEUTROPHILS # (AUTO) 4.5 K/uL (1.8-7.7); NEUTROPHILS % (AUTO) 72.6 % (40.0-70.0); PLATELET COUNT (AUTO) 191 K/uL (150-450); RED BLOOD CELL COUNT(AUTO) 3.76 MIL/uL (4.50-5.90)
[2019-06-10 00:13] LABS: ANION GAP 7 mmol/L (8-16); CARBON DIOXIDE 28 mmol/L (22-29); CHLORIDE 103 mmol/L (98-107); CREATININE 0.79 mg/dL (0.60-1.30); GLOMERULAR FILTR. RATE CALC > 60 mL/min (>60); GLUCOSE,RANDOM 258 mg/dL (70-110); POTASSIUM 3.3 mmol/L (3.5-5.1); SODIUM SERUM 138 mmol/L (136-145); UREA NITROGEN, BLOOD 19 mg/dL (7-18)
[2019-06-10 00:14] LABS: INR 1.2 (0.9-1.1); PROTHROMBIN TIME 12.6 SEC (9.4-11.6)
[2019-06-10 00:31] LABS: B-TYPE NATRIURETIC PEPTIDE 496 pg/mL (0-100)
[2019-06-10 00:38] LABS: ALANINE AMINOTRANSFERASE 17 U/L (12-78); ALBUMIN 3.4 g/dL (3.4-5.0); ALKALINE PHOSPHATASE 92 U/L (46-116); ASPARTATE AMINOTRANSFERASE 15 U/L (15-37); BILIRUBIN,TOTAL 0.4 mg/dL (0.1-1.0); CREATINE KINASE, TOTAL ONLY 85 U/L (39-308); TOTAL PROTEIN, SERUM 7.3 g/dL (6.4-8.2)
[2019-06-10] MEDS ORDERED: ACETAMINOPHEN 325 MG TABLET PO PRN ×2 (02:15→04:15)
[2019-06-10] MEDS ORDERED: 0.9% SODIUM CHLORIDE 10 ML SYRINGE IVP PRN (02:15)
[2019-06-10] MEDS ORDERED: MORPHINE SULFATE 2 MG/ML SYRINGE IVP ONE (02:15)
[2019-06-10] MEDS ORDERED: HYDROCODONE/ACETAMINOPHEN 5-325 MG TABLET PO PRN (04:15)
[2019-06-10] MEDS ORDERED: MAGNESIUM HYDROXIDE SUSPENSION 30 ML UDCUP PO PRN (04:15)
[2019-06-10] MEDS ORDERED: ZOLPIDEM TARTRATE 5 MG TABLET PO PRN (04:15)
[2019-06-10] MEDS ORDERED: BISACODYL 10 MG RECTAL RECTAL SUPPOSITORY PR PRN (04:15)
[2019-06-10] MEDS: MORPHINE SULFATE 2 MG/ML SYRINGE IVP PRN ×4 (05:44→22:32)
[2019-06-10] MEDS: HEPARIN SODIUM,PORCINE 5,000 UNITS/ML VIAL SQ SCH ×2 (08:00→15:52)
[2019-06-10] MEDS ORDERED: POTASSIUM CHLORIDE 20 MEQ ER TABLET PO ONE (08:15)
[2019-06-10 08:34] LABS: GLUCOSE,POINT OF CARE 298 MG/DL (70-110)
[2019-06-10] MEDS: METOPROLOL TARTRATE 50 MG TABLET PO SCH (08:46)
[2019-06-10] MEDS: PANTOPRAZOLE SODIUM 40 MG DR TABLET PO SCH (09:00)
[2019-06-10] MEDS: DOCUSATE SODIUM 100 MG CAPSULE PO SCH ×2 (09:00→21:00)
[2019-06-10] MEDS: CLOPIDOGREL BISULFATE 75 MG TABLET PO SCH (09:00)
[2019-06-10] MEDS: INSULIN GLARGINE,HUM.REC.ANLOG 100 UNITS/ML SQ SCH ×2 (09:00→22:13)
[2019-06-10] MEDS: ATORVASTATIN CALCIUM 40 MG TABLET PO SCH (09:00)
[2019-06-10 22:00] VITALS: BP 110/67
[2019-06-11] VITALS (8 sets, daily range): BP systolic 91–124; BP diastolic 62–85
[2019-06-11] MEDS: MORPHINE SULFATE 2 MG/ML SYRINGE IVP PRN ×4 (03:24→23:02)
[2019-06-11] MEDS: HEPARIN SODIUM,PORCINE 5,000 UNITS/ML VIAL SQ SCH ×3 (07:49→17:01)
[2019-06-11] MEDS: DOCUSATE SODIUM 100 MG CAPSULE PO SCH ×2 (08:06→21:00)
[2019-06-11] MEDS: ATORVASTATIN CALCIUM 40 MG TABLET PO SCH (08:06)
[2019-06-11] MEDS: PANTOPRAZOLE SODIUM 40 MG DR TABLET PO SCH (08:07)
[2019-06-11] MEDS: CLOPIDOGREL BISULFATE 75 MG TABLET PO SCH (08:07)
[2019-06-11] MEDS: METOPROLOL TARTRATE 50 MG TABLET PO SCH (08:07)
[2019-06-11] MEDS: INSULIN GLARGINE,HUM.REC.ANLOG 100 UNITS/ML SQ SCH ×2 (08:10→21:00)
[2019-06-11] MEDS ORDERED: DEXTROSE 50%-WATER 25 GM/50 ML SYRINGE IVP PRN (10:45)
[2019-06-11] MEDS ORDERED: MORPHINE SULFATE 2 MG/ML SYRINGE IVP ONE (11:00)
[2019-06-11] MEDS ORDERED: HYDROmorphone 2 MG/ML SYRINGE IVP ONE (11:15)
[2019-06-11 11:46] LABS: GLUCOMETER DEV NAME(LOC) 5S.1; GLUCOSE,POINT OF CARE 409 MG/DL (70-110)
[2019-06-11 11:46] LABS: GLUCOMETER DEV NAME(LOC) 5S.1; GLUCOSE,POINT OF CARE 235 MG/DL (70-110)
[2019-06-11 11:46] LABS: GLUCOMETER DEV NAME(LOC) 5S.1; GLUCOSE,POINT OF CARE 231 MG/DL (70-110)
[2019-06-11] MEDS: INSULIN LISPRO 100 UNITS/ML SQ PRN (12:20)
[2019-06-11] MEDS ORDERED: FUROSEMIDE 40 MG/4 ML VIAL IVP SCH (14:00)
[2019-06-11] MEDS: ALBUTEROL SULFATE 2.5 MG/0.5 ML NEB SOLUTION NEB SCH ×3 (15:00→23:00)
[2019-06-11] MEDS: IPRATROPIUM BROMIDE 0.5 MG/2.5 ML NEB SOLUTION NEB SCH ×3 (15:00→22:56)
[2019-06-11] MEDS ORDERED: FUROSEMIDE 40 MG TABLET PO ONE ×2 (16:00→19:15)
[2019-06-11] MEDS: LORazepam 2 MG/ML VIAL IM PRN (17:00)
[2019-06-11 17:18] LABS: GLUCOMETER DEV NAME(LOC) 5S.1; GLUCOSE,POINT OF CARE 181 MG/DL (70-110)
[2019-06-12] MEDS: LORazepam 2 MG/ML VIAL IM PRN ×2 (00:55→10:31)
[2019-06-12] MEDS: ALBUTEROL SULFATE 2.5 MG/0.5 ML NEB SOLUTION NEB SCH ×6 (02:35→23:00)
[2019-06-12] MEDS: IPRATROPIUM BROMIDE 0.5 MG/2.5 ML NEB SOLUTION NEB SCH ×6 (02:35→23:00)
[2019-06-12 04:34] VITALS: BP 100/59
[2019-06-12] MEDS: MORPHINE SULFATE 2 MG/ML SYRINGE IVP PRN ×3 (05:36→23:36)
[2019-06-12 06:38] LABS: BASOPHILS % (AUTO) 0.4 % (0.0-2.0); EOSINOPHILS % (AUTO) 1.9 % (1.0-6.0); HEMATOCRIT 35.9 % (41-53); HEMOGLOBIN 11.9 g/dL (13.5-17.5); LYMPHOCYTES # (AUTO) 1.5 K/uL (1.0-4.8); LYMPHOCYTES % (AUTO) 18.5 % (22.0-44.0); MEAN CORPUSCULAR HEMOGLOBIN 26.8 pg (26.0-34.0); MEAN CORPUSCULAR HGB CONC 33.1 G/dL (31.0-37.0); MEAN CORPUSCULAR VOLUME 81 fL (80-100); MONOCYTES # (AUTO) 0.8 K/uL (0.1-1.0); MONOCYTES % (AUTO) 9.1 % (2.0-9.0); NEUTROPHILS # (AUTO) 5.9 K/uL (1.8-7.7); NEUTROPHILS % (AUTO) 70.1 % (40.0-70.0); PLATELET COUNT (AUTO) 196 K/uL (150-450); RED BLOOD CELL COUNT(AUTO) 4.42 MIL/uL (4.50-5.90); RED CELL DISTRIBUTION WIDTH 19.3 % (11.5-14.5)
[2019-06-12 06:58] LABS: ALANINE AMINOTRANSFERASE 26 U/L (12-78); ALBUMIN 3.3 g/dL (3.4-5.0); ALKALINE PHOSPHATASE 99 U/L (46-116); ANION GAP 10 mmol/L (8-16); ASPARTATE AMINOTRANSFERASE 25 U/L (15-37); BILIRUBIN,TOTAL 0.6 mg/dL (0.1-1.0); CALCIUM, TOTAL 8.8 mg/dL (8.8-10.5); CARBON DIOXIDE 25 mmol/L (22-29); CHLORIDE 97 mmol/L (98-107); CREATININE 0.77 mg/dL (0.60-1.30); GLOMERULAR FILTR. RATE CALC > 60 mL/min (>60); GLUCOSE,RANDOM 158 mg/dL (70-110); SODIUM SERUM 132 mmol/L (136-145); TOTAL PROTEIN, SERUM 7.5 g/dL (6.4-8.2); UREA NITROGEN, BLOOD 23 mg/dL (7-18)
[2019-06-12 07:07] VITALS: BP 96/64
[2019-06-12] MEDS: HEPARIN SODIUM,PORCINE 5,000 UNITS/ML VIAL SQ SCH ×4 (08:00→23:24)
[2019-06-12] MEDS: PANTOPRAZOLE SODIUM 40 MG DR TABLET PO SCH (09:00)
[2019-06-12] MEDS: METOPROLOL TARTRATE 50 MG TABLET PO SCH (09:00)
[2019-06-12] MEDS: INSULIN GLARGINE,HUM.REC.ANLOG 100 UNITS/ML SQ SCH ×2 (09:00→21:00)
[2019-06-12] MEDS: DOCUSATE SODIUM 100 MG CAPSULE PO SCH ×2 (09:00→21:34)
[2019-06-12 09:33] LABS: GLUCOMETER DEV NAME(LOC) 5S.1; GLUCOSE,POINT OF CARE 161 MG/DL (70-110)
[2019-06-12 09:34] LABS: GLUCOMETER DEV NAME(LOC) 5S.1; GLUCOSE,POINT OF CARE 157 MG/DL (70-110)
[2019-06-12] MEDS: ATORVASTATIN CALCIUM 40 MG TABLET PO SCH (10:30)
[2019-06-12] MEDS: CLOPIDOGREL BISULFATE 75 MG TABLET PO SCH (10:30)
[2019-06-12] MEDS: FUROSEMIDE 40 MG TABLET PO SCH (10:30)
[2019-06-12 10:56] VITALS: BP 107/70
[2019-06-12 12:25] LABS: GLUCOMETER DEV NAME(LOC) 5S.1; GLUCOSE,POINT OF CARE 242 MG/DL (70-110)
[2019-06-12] MEDS: INSULIN LISPRO 100 UNITS/ML SQ PRN ×2 (13:08→23:23)
[2019-06-12] MEDS ORDERED: PENTETATE DTPA TC99M/MCL ISOTOPE 1 EA INJ INJ ONE (14:50)
[2019-06-12] MEDS ORDERED: MAA ALBUMIN AGGREGATED TC99M/UD<10MCL ISOTOPE 1 EA INJ INJ ONE (15:10)
[2019-06-12] MEDS ORDERED: MORPHINE SULFATE 2 MG/ML SYRINGE IVP ONE (15:45)
[2019-06-12 16:30] VITALS: BP 102/84
[2019-06-12 19:46] VITALS: BP 106/75
[2019-06-12] MEDS: LORazepam 2 MG/ML VIAL IVP PRN (21:06)
[2019-06-13 00:30] VITALS: BP 103/66
[2019-06-13] MEDS: ALBUTEROL SULFATE 2.5 MG/0.5 ML NEB SOLUTION NEB SCH ×3 (03:00→11:00)
[2019-06-13] MEDS: IPRATROPIUM BROMIDE 0.5 MG/2.5 ML NEB SOLUTION NEB SCH ×3 (03:00→11:00)
[2019-06-13] MEDS: LORazepam 2 MG/ML VIAL IVP PRN ×4 (03:41→22:20)
[2019-06-13 04:20] VITALS: BP 106/59
[2019-06-13] MEDS: MORPHINE SULFATE 2 MG/ML SYRINGE IVP PRN ×4 (06:52→21:28)
[2019-06-13 06:53] LABS: GLUCOMETER DEV NAME(LOC) 5N.2; GLUCOSE,POINT OF CARE 248 MG/DL (70-110)
[2019-06-13] MEDS: INSULIN LISPRO 100 UNITS/ML SQ PRN ×4 (06:58→20:58)
[2019-06-13] MEDS: HEPARIN SODIUM,PORCINE 5,000 UNITS/ML VIAL SQ SCH ×2 (08:00→15:15)
[2019-06-13 08:16] VITALS: BP 91/65
[2019-06-13] MEDS: FUROSEMIDE 40 MG TABLET PO SCH (08:48)
[2019-06-13] MEDS: CLOPIDOGREL BISULFATE 75 MG TABLET PO SCH (08:49)
[2019-06-13] MEDS: ATORVASTATIN CALCIUM 40 MG TABLET PO SCH (08:49)
[2019-06-13] MEDS: INSULIN GLARGINE,HUM.REC.ANLOG 100 UNITS/ML SQ SCH ×2 (08:50→20:58)
[2019-06-13] MEDS: PANTOPRAZOLE SODIUM 40 MG DR TABLET PO SCH (08:53)
[2019-06-13] MEDS: METOPROLOL TARTRATE 50 MG TABLET PO SCH (08:53)
[2019-06-13] MEDS: DOCUSATE SODIUM 100 MG CAPSULE PO SCH ×2 (08:54→20:51)
[2019-06-13 11:08] VITALS: BP 110/72
[2019-06-13] MEDS ORDERED: IPRATROPIUM BROMIDE 0.5 MG/2.5 ML NEB SOLUTION NEB PRN (11:45)
[2019-06-13] MEDS ORDERED: ALBUTEROL SULFATE 2.5 MG/0.5 ML NEB SOLUTION NEB PRN (11:45)
[2019-06-13 13:20] LABS: BASOPHILS % (AUTO) 0.5 % (0.0-2.0); EOSINOPHILS % (AUTO) 2.7 % (1.0-6.0); HEMATOCRIT 32.2 % (41-53); HEMOGLOBIN 10.7 g/dL (13.5-17.5); LYMPHOCYTES # (AUTO) 0.8 K/uL (1.0-4.8); LYMPHOCYTES % (AUTO) 15.2 % (22.0-44.0); MEAN CORPUSCULAR HGB CONC 33.3 G/dL (31.0-37.0); MEAN CORPUSCULAR VOLUME 81 fL (80-100); MONOCYTES # (AUTO) 0.5 K/uL (0.1-1.0); NEUTROPHILS # (AUTO) 3.8 K/uL (1.8-7.7); NEUTROPHILS % (AUTO) 72.6 % (40.0-70.0); PLATELET COUNT (AUTO) 156 K/uL (150-450); RED BLOOD CELL COUNT(AUTO) 3.96 MIL/uL (4.50-5.90); RED CELL DISTRIBUTION WIDTH 19.1 % (11.5-14.5)
[2019-06-13 13:32] LABS: ANION GAP 5 mmol/L (8-16); CALCIUM, TOTAL 8.6 mg/dL (8.8-10.5); CARBON DIOXIDE 29 mmol/L (22-29); CHLORIDE 99 mmol/L (98-107); CREATININE 0.65 mg/dL (0.60-1.30); GLOMERULAR FILTR. RATE CALC > 60 mL/min (>60); GLUCOSE,RANDOM 184 mg/dL (70-110); POTASSIUM 4.2 mmol/L (3.5-5.1); SODIUM SERUM 133 mmol/L (136-145); UREA NITROGEN, BLOOD 15 mg/dL (7-18)
[2019-06-13 15:46] VITALS: BP 107/72
[2019-06-13 22:18] LABS: GLUCOMETER DEV NAME(LOC) 5S.2A; GLUCOSE,POINT OF CARE 170 MG/DL (70-110)
[2019-06-13 22:18] LABS: GLUCOMETER DEV NAME(LOC) 5S.2A; GLUCOSE,POINT OF CARE 211 MG/DL (70-110)
[2019-06-14 02:26] LABS: GLUCOMETER DEV NAME(LOC) 5N.2; GLUCOSE,POINT OF CARE 226 MG/DL (70-110)
[2019-06-14 02:26] LABS: GLUCOMETER DEV NAME(LOC) 5N.2; GLUCOSE,POINT OF CARE 188 MG/DL (70-110)
[2019-06-14] MEDS: MORPHINE SULFATE 2 MG/ML SYRINGE IVP PRN ×5 (04:43→21:27)
[2019-06-14 04:46] VITALS: BP 108/76
[2019-06-14] MEDS: LORazepam 2 MG/ML VIAL IVP PRN ×4 (05:18→22:34)
[2019-06-14] MEDS: INSULIN LISPRO 100 UNITS/ML SQ PRN ×4 (05:25→21:31)
[2019-06-14 06:24] LABS: GLUCOMETER DEV NAME(LOC) 5S.2A; GLUCOSE,POINT OF CARE 202 MG/DL (70-110)
[2019-06-14] MEDS: HEPARIN SODIUM,PORCINE 5,000 UNITS/ML VIAL SQ SCH ×4 (08:00→22:44)
[2019-06-14] MEDS: INSULIN GLARGINE,HUM.REC.ANLOG 100 UNITS/ML SQ SCH ×2 (08:26→21:32)
[2019-06-14] MEDS: CLOPIDOGREL BISULFATE 75 MG TABLET PO SCH (08:26)
[2019-06-14] MEDS: FUROSEMIDE 40 MG TABLET PO SCH (09:00)
[2019-06-14] MEDS: METOPROLOL TARTRATE 50 MG TABLET PO SCH (09:00)
[2019-06-14] MEDS: ATORVASTATIN CALCIUM 40 MG TABLET PO SCH (09:00)
[2019-06-14] MEDS: DOCUSATE SODIUM 100 MG CAPSULE PO SCH ×2 (09:00→20:52)
[2019-06-14] MEDS: PANTOPRAZOLE SODIUM 40 MG DR TABLET PO SCH (09:00)
[2019-06-14 11:09] VITALS: BP 105/74
[2019-06-14 11:56] LABS: GLUCOMETER DEV NAME(LOC) 5S.2A; GLUCOSE,POINT OF CARE 295 MG/DL (70-110)
[2019-06-14 15:58] VITALS: BP 98/73
[2019-06-14 17:15] VITALS: BP 100/75
[2019-06-14 18:20] LABS: GLUCOMETER DEV NAME(LOC) 5N.2; GLUCOSE,POINT OF CARE 249 MG/DL (70-110)
[2019-06-14 19:48] VITALS: BP 110/76
[2019-06-14 21:09] LABS: GLUCOMETER DEV NAME(LOC) 5S.2A; GLUCOSE,POINT OF CARE 291 MG/DL (70-110)
[2019-06-14 23:48] VITALS: BP 102/69
[2019-06-15] MEDS: MORPHINE SULFATE 2 MG/ML SYRINGE IVP PRN ×4 (01:52→16:17)
[2019-06-15 04:38] VITALS: BP 99/63
[2019-06-15] MEDS: LORazepam 2 MG/ML VIAL IVP PRN ×2 (05:06→12:11)
[2019-06-15] MEDS: INSULIN LISPRO 100 UNITS/ML SQ PRN ×3 (06:32→18:19)
[2019-06-15 06:59] LABS: GLUCOMETER DEV NAME(LOC) 5N.2; GLUCOSE,POINT OF CARE 246 MG/DL (70-110)
[2019-06-15 07:36] VITALS: BP 96/56
[2019-06-15] MEDS: HEPARIN SODIUM,PORCINE 5,000 UNITS/ML VIAL SQ SCH ×2 (08:00→16:00)
[2019-06-15] MEDS: METOPROLOL TARTRATE 50 MG TABLET PO SCH (09:00)
[2019-06-15 09:48] LABS: SPECIMENTYPE,BODY FLUID PLEURAL
[2019-06-15] MEDS: FUROSEMIDE 40 MG TABLET PO SCH (09:51)
[2019-06-15] MEDS: DOCUSATE SODIUM 100 MG CAPSULE PO SCH (09:51)
[2019-06-15] MEDS: ATORVASTATIN CALCIUM 40 MG TABLET PO SCH (09:51)
[2019-06-15] MEDS: PANTOPRAZOLE SODIUM 40 MG DR TABLET PO SCH (09:52)
[2019-06-15] MEDS: CLOPIDOGREL BISULFATE 75 MG TABLET PO SCH (09:52)
[2019-06-15] MEDS: INSULIN GLARGINE,HUM.REC.ANLOG 100 UNITS/ML SQ SCH (10:03)
[2019-06-15 10:55] LABS: APPEARANCE,UNSPUN,BODY FLUID HAZY (CLEAR)
[2019-06-15 10:56] LABS: APPEARANCE,SPUN,BODY FLUID CLEAR (CLEAR); COLOR,BODY FLUID YELLOW (LT YELLOW); TOTAL VOLUME,BODY FLUID 1950 mL
[2019-06-15 11:00] LABS: BASOPHILS,BODY FLUID 0 %; EOSINOPHILS,BF (ANAL) 0 %; LYMPHOCYTES,BODY FLUID 78 %; MONOCYTES,BODY FLUID 9 %; NEUTROPHILS,BODY FLUID 13 %; WBC, BODY FLUID 62 /cu. mm.
[2019-06-15 11:21] VITALS: BP 108/65
[2019-06-15 14:59] LABS: GLUCOMETER DEV NAME(LOC) 5N.1; GLUCOSE,POINT OF CARE 183 MG/DL (70-110)
[2019-06-15 18:15] LABS: GLUCOMETER DEV NAME(LOC) 5N.2; GLUCOSE,POINT OF CARE 220 MG/DL (70-110)
[2019-06-15 18:15] LABS: GLUCOMETER DEV NAME(LOC) 5N.2; GLUCOSE,POINT OF CARE 169 MG/DL (70-110)
[2019-06-15] MEDS ORDERED: FURO40 PO (18:30)
[2019-06-15] MEDS ORDERED: HEPA500018 SQ (18:30)
[2019-06-15] MEDS ORDERED: ACET-3207 PO (18:31)
[2019-06-15] MEDS ORDERED: INSLAN SQ (18:33)
[2019-06-15] MEDS ORDERED: ZOLP5 PO (18:34)
[2019-06-15] MEDS ORDERED: MOM30 PO (18:35)
[2019-06-15] MEDS ORDERED: INSULIN GLARGINE,HUM.REC.ANLOG 100 UNITS/ML SQ SCH (21:00)
== END 2019-06-15 19:25 | DRG 308 ==
LOC: EMS 22:44 → 5N 06-10 18:44 → 5S 06-12 16:50
PROVIDERS: ADMIT Internal Medicine; ATTEND Internal Medicine
PROC: 0W993ZZ Drainage of Right Pleural Cavity, Percutaneous Approach (ICD-10-PCS; principal; 2019-06-14)
DX: I49.8 Other specified cardiac arrhythmias (principal); I50.23 Acute on chronic systolic (congestive) heart failure; J91.8 Pleural effusion in other conditions classified elsewhere; I42.9 Cardiomyopathy, unspecified; E78.5 Hyperlipidemia, unspecified; E87.6 Hypokalemia; I25.5 Ischemic cardiomyopathy; E11.9 Type 2 diabetes mellitus without complications; J44.9 Chronic obstructive pulmonary disease, unspecified; I50.9 Heart failure, unspecified; I25.10 Atherosclerotic heart disease of native coronary artery without angina pectoris; R07.89 Other chest pain; I11.0 Hypertensive heart disease with heart failure; Z91.14 Patient's other noncompliance with medication regimen; Z91.19 Patient's noncompliance with other medical treatment and regimen; Z95.810 Presence of automatic (implantable) cardiac defibrillator
CPT/HCPCS: 32555; 70450; 76942; 78582; 82465; 82945; 83615; 83986; 84145; 84157; 87015; 87070; 87081; 87101; 87205; 87206; 89051; 93005; 93880; 94640; 97116; 97162; A9539; A9540; J1170; J1200; J1644; J1815; J1940; J2060; J2270